=== PATIENT | female | born 1980 | race Caucasian/White ===

== ENCOUNTER 2018-01-07 14:24 | Inpatient (IN) | payer OTHER ==
[~2018-01-07] VITALS: Ht 170.2 cm; Wt 90.0 kg
[2018-01-07] MEDS ORDERED: SODIUM CHLORIDE 0.9% 1000ML 1,000 ML IV STA ×2 (15:30→16:45)
[2018-01-07] MEDS ORDERED: ONDANSETRON INJ 2 MG/ML 2 ML VIAL IV STA (15:30)
[2018-01-07] MEDS ORDERED: MoRPHine SULFATE 10 MG/ML CARP/VIAL IV STA (15:43)
[2018-01-07 16:06] LABS: BASO % 0.2 %; BASO ABS # 0.02 K/uL (0-0.2); EOS % 0.7 %; EOS ABS # 0.08 K/uL (0-0.5); HEMATOCRIT 43.5 % (37-47); HEMOGLOBIN 14.4 g/dL (12.0-16.0); IG# 0.02 K/uL (0.00-0.02); LYMPH % 12.9 %; LYMPH ABS # 1.53 K/uL (1.2-3.4); MEAN CELL VOLUME 74.7 fL (80-100); MEAN CORPUSCULAR HEMOGLOBIN 24.7 pg (25-34); MEAN CORPUSCULAR HGB CONC 33.1 g/dl (32-36); MEAN PLATELET VOLUME 9.6 fL (7.4-10.4); MONO % 5.6 %; MONO ABS # 0.67 K/uL (0.11-0.59); NEUT % 80.4 %; NEUT ABS # 9.58 K/uL (1.4-6.5); PLATELET COUNT 292 K/uL (130-400); RED CELL DISTRIBUTION WIDTH CV 16.3 % (11.5-14.5); RED CELL DISTRIBUTION WIDTH SD 43.8 fL (36.4-46.3)
[2018-01-07 16:27] LABS: CALCIUM 9.6 mg/dl (8.5-10.1); CREATININE 1.4 mg/dl (0.60-1.20); POTASSIUM 3.6 mmol/L (3.5-5.1)
--- NOTE | 2018-01-07 16:54 | EMERGENCY ROOM VISIT NOTE ---
History First contact with patient: 15:04 Chief Complaint: ABDOMINAL PAIN Stated Complaint: UPPER STOMACH PAIN History of Present Illness The patient is a 37 year old female who presents to the Emergency Room with complaints of right upper quadrant pain intermittently 2 weeks. The patient states over the past 3 days, the symptoms have been worse. The pain radiates into her back, and she rates it 9/10 and describes it as sharp. Food seems to make the pain worse, nothing seems to make it better. She states she has been eating sandwiches, and states today she ate a sausage and cheese sandwich prior to experience significant pain. She did have a lunch meat some over the weekend prior to symptoms. She did try taking ibuprofen 600 mg 2 hours prior, without improvement in her symptoms. She does get nauseated and has had multiple episodes of emesis. She denies any hematemesis. She denies any fevers , but has had occasional chills. She denies any constipation or diarrhea. The patient has not had any bowel movements, and states it is due to decreased p.o. intake. She does still have her gallbladder and appendix. This is the first time she has ever experienced these symptoms. The patient is currently on menses. Review of Systems A complete 10 point review of systems was reviewed with the patient with pertinent positives and negatives as per history of present illness. All else were negative. Past Medical/Surgical History Medical Problems: (1) Anxiety State Nos (2) Chronic Pain Due To Trauma (3) Chronic pain of left ankle (4) Comminuted left ankle fracture (5) Depressive Disorder Nec (6) Hypertensive urgency (7) Pancreatitis (8) Tobacco Use Disorder Social History Smoking Status: Never Smoker Drug Use: none Marital Status: Housing Status: lives with family Occupation Status: employed Current/Historical Medications No Active Prescriptions or Reported Meds Physical Exam Vital Signs Date Time Temp Pulse Resp B/P (MAP) Pulse Ox O2 Delivery O2 Flow Rate FiO2 01/07/18 19:44 82 21 223/138 98 Room Air 01/07/18 17:21 82 21 223/146 97 Room Air 01/07/18 16:20 87 20 97 Room Air 01/07/18 14:29 36.7 110 18 212/159 98 Room Air Physical Exam VITALS: Vitals are noted on the nurse's note and reviewed by myself. Vital signs stable. GENERAL: This is a 37-year-old obese white female, in no acute distress, nondiaphoretic, well-developed well-nourished. SKIN: The skin was without rashes, erythema, edema, or bruising. There is no tenting of the skin. Capillary reflex less than 2 seconds. HEAD: Normocephalic atraumatic. EARS: External auditory canals clear, tympanic membranes pearly dickson without erythema or effusion bilaterally. EYES: Pupils equal round and reactive to light and accommodation. Conjunctivae without injection, sclerae without icterus. Extraocular movements intact. NOSE: Patent, turbinates without inflammation or discharge. No sinus tenderness. MOUTH: Mucous membranes moist. Tonsils are not enlarged. Pharynx without erythema or exudate. Uvula midline. Airway patent. Tongue does not deviate. NECK: Supple without nuchal rigidity. No lymphadenopathy. No thyromegaly. Cervical spine is nontender. No JVD. HEART: Regular rate and rhythm without murmurs gallops or rubs. LUNGS: Clear to auscultation bilaterally without wheezes, rales or rhonchi. No dullness to percussion. No retractions or accessory muscle use. ABDOMEN: Positive bowel sounds x 4. Normal tympanic percussion. Epigastric and right upper quadrant tenderness. The abdomen was otherwise soft, nontender , without masses or organomegaly. Bolden sign positive. No guarding or rebound tenderness. MUSCULOSKELETAL: No muscle atrophy, erythema, or edema noted. Full range of motion without joint tenderness in all extremities. No tenderness to palpation. Normal gait. Strength 5/5 throughout. NEURO: Patient was alert and oriented to person place and time. Normal sensation to light and sharp touch. Deep tendon reflexes 2+ throughout. No focal neurological deficits. Medical Decision & Procedures ER Provider Diagnostic Interpretation: ABDOMEN LIMITED (US) HISTORY: 37 years-old Female RUQ pain acute right upper quadrant abdominal pain COMPARISON: None available TECHNIQUE: Multiple real-time sonographic images of the abdominal right upper quadrant were obtained assessing grayscale appearance and color flow FINDINGS: Nonspecific increased echogenicity of the pancreas without pancreatic ductal dilation identified. Slightly echogenic appearance of the liver without focal mass or intrahepatic biliary ductal dilation identified. The gallbladder is within normal limits without shadowing cholelithiasis, wall thickening or pericholecystic fluid collections. There is suggested minimal layering sludge within the gallbladder lumen. Common bile duct measures within the upper limits of normal at 6 mm. The imaged right kidney is unremarkable without hydronephrosis. IMPRESSION: 1. Minimal layering gallbladder sludge without cholelithiasis or sonographic evidence of acute cholecystitis. 2. No biliary ductal dilation. 3. Mildly echogenic appearance of the liver may reflect hepatic steatosis. The above report was generated using voice recognition software. It may contain grammatical, syntax or spelling errors. Electronically signed by: Joshua Jain M.D. 01/07/2018 4:58 PM Dictated Date/Time: 01/07/2018 4:55 PM Laboratory Results 01/07/18 15:55 Red Blood Count 5.82, Mean Corpuscular Volume 74.7, Mean Corpuscular Hemoglobin 24.7, Mean Corpuscular Hemoglobin Concent 33.1, Mean Platelet Volume 9.6, Neutrophils (%) (Auto) 80.4, Lymphocytes (%) (Auto) 12.9, Monocytes (%) (Auto) 5.6, Eosinophils (%) (Auto) 0.7, Basophils (%) (Auto) 0.2, Neutrophils # (Auto) 9.58, Lymphocytes # (Auto) 1.53, Monocytes # (Auto) 0.67, Eosinophils # (Auto) 0.08, Basophils # (Auto) 0.02 01/07/18 15:55 Test 01/07/18 15:55 01/07/18 17:25 White Blood Count 11.90 K/uL (4.8-10.8) Red Blood Count 5.82 M/uL (4.2-5.4) Hemoglobin 14.4 g/dL (12.0-16.0) Hematocrit 43.5 % (37-47) Mean Corpuscular Volume 74.7 fL (80-100) Mean Corpuscular Hemoglobin 24.7 pg (25-34) Mean Corpuscular Hemoglobin Concent 33.1 g/dl (32-36) Platelet Count 292 K/uL (130-400) Mean Platelet Volume 9.6 fL (7.4-10.4) Neutrophils (%) (Auto) 80.4 % Lymphocytes (%) (Auto) 12.9 % Monocytes (%) (Auto) 5.6 % Eosinophils (%) (Auto) 0.7 % Basophils (%) (Auto) 0.2 % Neutrophils # (Auto) 9.58 K/uL (1.4-6.5) Lymphocytes # (Auto) 1.53 K/uL (1.2-3.4) Monocytes # (Auto) 0.67 K/uL (0.11-0.59) Eosinophils # (Auto) 0.08 K/uL (0-0.5) Basophils # (Auto) 0.02 K/uL (0-0.2) RDW Standard Deviation 43.8 fL (36.4-46.3) RDW Coefficient of Variation 16.3 % (11.5-14.5) Immature Granulocyte % (Auto) 0.2 % Immature Granulocyte # (Auto) 0.02 K/uL (0.00-0.02) Prothrombin Time 10.7 SECONDS (9.0-12.0) Prothromb Time International Ratio 1.0 (0.9-1.1) Activated Partial Thromboplast Time 26.4 SECONDS (21.0-31.0) Partial Thromboplastin Ratio 1.0 Anion Gap 5.0 mmol/L (3-11) Est Creatinine Clear Calc Drug Dose 63.2 ml/min Estimated GFR () 55.5 Estimated GFR (Non- 47.9 BUN/Creatinine Ratio 16.6 (10-20) Calcium Level 9.6 mg/dl (8.5-10.1) Magnesium Level 2.3 mg/dl (1.8-2.4) Total Bilirubin 0.6 mg/dl (0.2-1) Aspartate Amino Transf (AST/SGOT) 13 U/L (15-37) Alanine Aminotransferase (ALT/SGPT) 20 U/L (12-78) Alkaline Phosphatase 107 U/L (45-117) Troponin I < 0.015 ng/ml (0-0.045) Total Protein 8.0 gm/dl (6.4-8.2) Albumin 4.0 gm/dl (3.4-5.0) Globulin 4.0 gm/dl (2.5-4.0) Albumin/Globulin Ratio 1.0 (0.9-2) Lipase 720 U/L (73-393) Thyroid Stimulating Hormone (TSH) 1.410 uIu/ml (0.300-4.500) Urine Color YELLOW Urine Appearance CLOUDY (CLEAR) Urine pH 5.5 (4.5-7.5) Urine Specific Dana 1.020 (1.000-1.030) Urine Protein 1+ (NEG) Urine Glucose (UA) NEG (NEG) Urine Ketones TRACE (NEG) Urine Occult Blood 3+ (NEG) Urine Nitrite POS (NEG) Urine Bilirubin NEG (NEG) Urine Urobilinogen NEG (NEG) Urine Leukocyte Esterase SMALL (NEG) Urine WBC (Auto) >30 /hpf (0-5) Urine RBC (Auto) >30 /hpf (0-4) Urine Hyaline Casts (Auto) 5-10 /lpf (0-5) Urine Epithelial Cells (Auto) 20-30 /lpf (0-5) Urine Bacteria (Auto) 4+ (NEG) Urine Pathogenic Casts /lpf (0) Urine Test NEG (NEG) Medications Administered Medications (Trade) Dose Ordered Sig/Kathy Route Start Time Stop Time Status Last Admin Dose Admin Sodium Chloride 1,000 ml @ 999 mls/hr Q1H1M STAT IV 01/07/18 15:30 01/07/18 16:30 DC 01/07/18 16:06 999 MLS/HR Ondansetron HCl (Zofran Inj) 4 mg NOW STAT IV 01/07/18 15:30 01/07/18 15:33 DC 01/07/18 16:06 4 MG Morphine Sulfate (MoRPHine SULFATE INJ) 8 mg NOW STAT IV 01/07/18 15:43 01/07/18 15:46 DC 01/07/18 16:05 8 MG Sodium Chloride 1,000 ml @ 999 mls/hr Q1H1M STAT IV 01/07/18 16:45 01/07/18 17:45 DC 01/07/18 17:02 999 MLS/HR Morphine Sulfate (MoRPHine SULFATE INJ) 4 mg NOW STAT IV 01/07/18 17:28 01/07/18 17:29 DC 01/07/18 18:01 4 MG Lorazepam (Ativan Inj) 0.5 mg NOW STAT IV 01/07/18 19:52 01/07/18 19:54 DC 01/07/18 19:59 0.5 MG ED Course The patient was seen and evaluated as above. IV access obtained, labs drawn. The patient was given 1 L normal saline solution, 8 mg morphine, 4 mg Zofran for her symptoms. I reviewed all labs. I reviewed the ultrasound results. The patient requested more pain medication. She was given 4mg morphine IV at this time. The patient was given a second liter normal saline solution due to elevated lipase. I discussed findings with the patient at bedside. I offered admission for obs vs. discharge home with close outpatient follow-up. The patient was having difficulty making this decision and wanted to know if her insurance would pay for an observation admission. The case manage became involved at this time. Please see her documentation. I re-evaluated the patient. She continues to complain of 5/10 pain. A friend is at bedside now. The patient is continuing to have difficulty deciding on admission vs. discharge. She finally agrees to hospitalist evaluation and possible admission. I discussed the case with the [facility] hospitalist regarding obs. admission. Please see hospitalist dictation regarding ongoing management and care. The patient complains of anxiety, and I received a phone call from the nurse. She was given 0.5 mg Ativan IV. Medical Decision This is a 37-year-old female patient presents to the emergency department today complaining of epigastric and right upper quadrant abdominal pain intermittently for the past 2 weeks, but worsening over the past 3 days. The pain is significantly worsened with food, and has caused nausea with vomiting. The patient does report one episode of hematemesis after initially denying this complaint. Her labs did show a mildly elevated white blood cell count of 11.9. There was no significant anemia or thrombocytopenia noted. Creatinine was elevated at 1.4. Electrolytes were overall without significant abnormality. Hepatic function is without significant abnormality. The patient's lipase was elevated at 720. Urinalysis was positive for nitrates and bacteria. This does appear to be a contaminated specimen, as there are 20-30 epithelial cells. Urine test was negative. Abdominal ultrasound did show sludge in the gallbladder and some echogenicity of the pancreas. While here in the emergency department, the patient required a significant amount of pain medication. She was given 2 L normal saline solution and Zofran for nausea and vomiting. She did report mild improvement, but continues to complain of pain 5/10. I discussed several times options with the patient including discharge versus admission for monitoring and pain management. Finally, the patient decides to agree to admission. I did discuss the case with the hospitalist. The patient will be admitted for observation for pain management and possible developing pancreatitis. Etiologies such as appendicitis, diverticulitis, obstruction, inflammatory bowel disease, renal colic, PUD, biliary pathology, pancreatitis, mesenteric ischemia, aortic pathology, infections, genitourinary, UTI, perforated viscus, as well as others were entertained. The chart was completed utilizing [employer] voice recognition software. Grammatical errors, random word insertions, pronoun errors, and incomplete sentences are an occasional consequence of this system due to software limitations, ambient noise, and hardware issues. Any formal questions or concerns about the content, text, or information contained within the body of this dictation should be directly addressed to the provider for clarification. Medication Reconcilliation Current Medication List: was personally reviewed by me Blood Pressure Screening Patient's blood pressure: Elevated blood pressure Blood pressure disposition: Elevated BP felt to be situational Impression Primary Impression: Abdominal pain Additional Impression: Urinary tract infection Departure Information Dispostion Admitted as an inpatient Condition GOOD Prescriptions No Active Prescriptions or Reported Meds Referrals Lily Eastman M.D. (PCP) Patient Instructions [facility] Problem Qualifiers Primary Impression: Abdominal pain Abdominal location: epigastric Qualified Codes: R10.13 - Epigastric pain Additional Impression: Urinary tract infection Urinary tract infection type: acute cystitis Hematuria presence: with hematuria Qualified Codes: N30.01 - Acute cystitis with hematuria
--- NOTE | 2018-01-07 17:00 | DIAGNOSTIC IMAGING REPORT ---
ABDOMEN LIMITED (US) HISTORY: 37 years-old Female RUQ pain acute right upper quadrant abdominal pain COMPARISON: None available TECHNIQUE: Multiple real-time sonographic images of the abdominal right upper quadrant were obtained assessing grayscale appearance and color flow FINDINGS: Nonspecific increased echogenicity of the pancreas without pancreatic ductal dilation identified. Slightly echogenic appearance of the liver without focal mass or intrahepatic biliary ductal dilation identified. The gallbladder is within normal limits without shadowing cholelithiasis, wall thickening or pericholecystic fluid collections. There is suggested minimal layering sludge within the gallbladder lumen. Common bile duct measures within the upper limits of normal at 6 mm. The imaged right kidney is unremarkable without hydronephrosis. IMPRESSION: 1. Minimal layering gallbladder sludge without cholelithiasis or sonographic evidence of acute cholecystitis. 2. No biliary ductal dilation. 3. Mildly echogenic appearance of the liver may reflect hepatic steatosis. The above report was generated using voice recognition software. It may contain grammatical, syntax or spelling errors. Electronically signed by: Joshua Jain M.D. 01/07/2018 4:58 PM Dictated Date/Time: 01/07/2018 4:55 PM
[2018-01-07] MEDS ORDERED: MoRPHine SULFATE 4 MG/ML 1 ML CARP\\VIAL IV STA (17:28)
[2018-01-07] MEDS ORDERED: LORAZEPAM 2 MG/ML 1 ML VIAL IV STA (19:52)
[2018-01-07 20:08] LABS: PTT PATIENT 26.4 SECONDS (21.0-31.0)
[2018-01-07] MEDS ORDERED: IV FLUIDS COMPLETED PRN (20:15)
[2018-01-07] MEDS ORDERED: AMLODIPINE BESYLATE 5 MG TAB ONE (20:26)
[2018-01-07] MEDS ORDERED: AMLODIPINE BESYLATE 5 MG TAB PO ONE (20:30)
[2018-01-07] MEDS ORDERED: PROCHLORPERAZINE INJ 5 MG in SYRINGE 4 ML IV PRN ×2 (20:30→21:00)
[2018-01-07] MEDS ORDERED: PANTOprazole INJ 40 MG in SYRINGE 0 ML IV ONE (20:30)
[2018-01-07] MEDS ORDERED: POLYETHYLENE (MIRALAX) 17 GM PACK PO ONE (20:53)
[2018-01-07] MEDS ORDERED: DOCUSATE SODIUM/SENNA 50/8.6MG TAB PO ONE (20:53)
[2018-01-07 20:55] VITALS: BP 220/140; PULSE 87; TEMP 37; Ht 170.2 cm; Wt 90.0 kg
[2018-01-07] MEDS ORDERED: POLYETHYLENE (MIRALAX) 17 GM PACK PO PRN (21:00)
[2018-01-07] MEDS ORDERED: NITROGLYCERIN 0.4 MG SL PER TAB CHARGE SL PRN (21:00)
--- NOTE | 2018-01-07 21:27 | DIAGNOSTIC IMAGING REPORT ---
ABDOMEN AND PELVIS CT WITHOUT CONTRAST CT DOSE: 636.25 mGy.cm HISTORY: Acute generalized abdominal pain abd pain TECHNIQUE: Multiaxial CT images of the abdomen and pelvis were performed without contrast. A dose lowering technique was utilized adhering to the principles of ALARA. COMPARISON STUDY: Right upper quadrant ultrasound of same day FINDINGS: Lung bases are clear. There is no pneumatosis or pneumoperitoneum identified. Imaged inferior cardiac chambers are unremarkable. Evaluation of the solid abdominal organs is limited without use of IV contrast. The liver, spleen,, gallbladder and adrenal glands are unremarkable. There is suggestion of minimal inflammatory stranding about the pancreatic head and uncinate process. Kidneys, ureters, urinary bladder, uterus and adnexa are unremarkable. Aorta is normal in course and caliber without aneurysm. No bulky adenopathy. No bowel obstruction or focal bowel wall thickening. Mild colonic diverticulosis without diverticulitis. I attenuating material seen within the right hemicolon. Normal appendix. Soft tissues are unremarkable. Mild multilevel facet arthrosis. IMPRESSION: 1. Suggestion of minimal inflammatory stranding about the pancreatic head and uncinate process may reflect developing acute pancreatitis within the appropriate clinical setting. Correlate with lipase level. 2. No bowel obstruction or focal bowel wall thickening. Normal appendix. 3. Mild colonic diverticulosis without CT evidence of acute diverticulitis. Electronically signed by: Joshua Jain M.D. 01/07/2018 9:26 PM Dictated Date/Time: 01/07/2018 9:20 PM
[2018-01-07] MEDS: HYDROmorphone INJ 0.5 MG/0.5 ML SYR IV PRN (21:37)
[2018-01-07 21:47] LABS: HEMATOCRIT 40.1 % (37-47)
[2018-01-07] MEDS: LACTATED RINGER'S 1000ML 1,000 ML IV SCH (21:54)
[2018-01-07] MEDS ORDERED: NSS + 20MEQ KCL 1000ML 1,000 ML IV SCH (22:00)
--- NOTE | 2018-01-07 23:43 | EMERGENCY ROOM VISIT NOTE ---
ED Visit Note First contact with patient: 15:04 I have personally evaluated this patient examined her and reviewed the pertinent labs and data. I have discussed the case with Svetlana Jackson, the physician leasing assistant and agree with the plan. Please refer to the PA note. This patient has had nausea vomiting and upper abdominal pain. She was found to have a mildly elevated lipase and has some sludge in her gallbladder. She has had multiple doses of pain medicine and IV meds. On my exam, she has no peritonitis and seems more comfortable fairly comfortable after having IV meds. At this point, we are going to admit her for pain management and further treatment and evaluation of her abdominal pain.
[2018-01-08] VITALS (12 sets, daily range): BP systolic 165–208; BP diastolic 107–133; PULSE 66–80; TEMP 36.5–36.8; O2SAT 93–98
[2018-01-08] MEDS: LORAZEPAM 2 MG/ML 1 ML VIAL IV PRN ×4 (00:14→20:42)
[2018-01-08] MEDS: TRAMADOL HCL 50 MG TAB PO PRN ×2 (00:15→19:45)
--- NOTE | 2018-01-08 00:22 | HISTORY & PHYSICAL EXAMINATION ---
DATE OF ADMISSION: 01/07/2018 PRIMARY CARE PHYSICIAN: Dr. Eastman. CHIEF COMPLAINT: Abdominal pain. HISTORY OF PRESENT ILLNESS: History obtained from patient and records. Medical history significant for hypertension (medication noncompliance), mood disorder, anxiety, ongoing tobacco abuse. Two weeks history of upper achy abdominal pain precipitated by food intake, later on more constant, no bowel movement for 5 days, some nausea, no emesis, no chest pain, no shortness of breath. Today, she had an episode of hematemesis. Denies dysuria Intractable pain in the Emergency Room. Denies alcohol/NSAID intake. MEDICAL HISTORY: As above. She stopped taking multiple blood pressure medications (Norvasc,propranolol, verapamil, and losartan/HCTZ) for about 5 months now because "it was good without medications" SURGICAL HISTORY: She has had orthopedic procedures. MEDICATIONS: Home medications are none. ALLERGIES: ALLERGIC TO TYLENOL, ADHESIVE, SULFA, CODEINE, LATEX, PREGABALIN. FAMILY HISTORY: Diabetes and hypertension. PERSONAL AND SOCIAL HISTORY: One-fourth pack daily. No chronic intake of alcohol or abuse. 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 REVIEW OF SYSTEMS: As per HPI. All 10 systems reviewed, all other ROS negative. PHYSICAL EXAMINATION: VITAL SIGNS: Blood pressure is noted to be 212/159, pulse 87, RR 20, temperature 36.7, saturations 97% on room air. GENERAL: uncomfortable, obese, in no respiratory distress. SKIN: Normal color, warm. HEENT: [place] palpebral conjunctivae no ptosis , dry buccal mucosa. NECK: Supple and nontender. CHEST: Clear. No tenderness. CARDIOVASCULAR: RRR, no murmur. ABDOMEN: Some distention, epigastric tenderness. EXTREMITIES: No edema, no LE tenderness, no other gross deformities except amputation stump NEUROLOGIC: Coherent, no gross focality. LABORATORY DATA: Hemoglobin 14, hematocrit 42.5, WBC 11.9, platelets 292. Sodium 136, chloride 101, CO2 of 31, BUN 30, creatinine 1.4, glucose 84. Lipase 720. US showed overlying gallbladder sludge without cholelithiasis. CT of abdomen and pelvis showed minimal inflammation of pancreatic head, uncinate process, developing acute pancreatitis ASSESSMENT: 1. Acute pancreatitis Probably biliary in etiology . 2. Hypertensive urgency secondary to pain Medication noncompliance. 3. Upper gastrointestinal bleeding secondary to possible gastritis. Hemoglobin currently stable 4. ongoing tobacco abuse. 5 ARF 2 to illness. PLAN: PCU for hypertensive urgency. analgesia. Resume home Norvasc for now. IVF, bowel rest Baseline urinalysis. Monitor creatinine response to IV fluids. IV PPI for now for UGIB Serial H&H (Of note, patient currently refusing pRBC transfusion in the eventuality.) GI consult RE UGIB, pancreatitis Patient counseled to stop smoking. DVT Prophylaxis: SCDs RE GI bleed. Full code. MTDD
[2018-01-08] MEDS: HYDROmorphone INJ 0.5 MG/0.5 ML SYR IV PRN ×5 (03:50→21:36)
[2018-01-08 05:35] LABS: BASO % 0.5 %; BASO ABS # 0.04 K/uL (0-0.2); EOS % 3.9 %; EOS ABS # 0.32 K/uL (0-0.5); HEMATOCRIT 39.7 % (37-47); HEMOGLOBIN 12.9 g/dL (12.0-16.0); IG# 0.02 K/uL (0.00-0.02); LYMPH % 23.4 %; MEAN CELL VOLUME 75.6 fL (80-100); MEAN CORPUSCULAR HEMOGLOBIN 24.6 pg (25-34); MEAN CORPUSCULAR HGB CONC 32.5 g/dl (32-36); MEAN PLATELET VOLUME 9.9 fL (7.4-10.4); MONO % 7.5 %; MONO ABS # 0.61 K/uL (0.11-0.59); NEUT % 64.5 %; NEUT ABS # 5.23 K/uL (1.4-6.5); PLATELET COUNT 250 K/uL (130-400); RED CELL DISTRIBUTION WIDTH CV 16.1 % (11.5-14.5); RED CELL DISTRIBUTION WIDTH SD 43.9 fL (36.4-46.3); WHITE BLOOD COUNT 8.12 K/uL (4.8-10.8)
[2018-01-08 06:12] LABS: CALCIUM 8.4 mg/dl (8.5-10.1); CREATININE 0.85 mg/dl (0.60-1.20); POTASSIUM 3.1 mmol/L (3.5-5.1)
--- NOTE | 2018-01-08 07:10 | Clinical Documentation Query ---
DERIAN Carter : CLINICAL DOCUMENTATION QUERY Patient is a 37 year old female admitted for evaluation of abdominal pain. CT scan of the abdomen read to include "Suggestion of minimal inflammatory stranding about the pancreatic head and uncinate process may reflect developing acute pancreatitis ". H&P notes "acute pancreaticobiliary" which appears incomplete. As appropriate, please clarify the possible or suspected clinical etiology for the abdominal pain at this time. Thank you. In your clinical opinion is this patient being managed for: ( ) (Possible) Acute pancreatitis ( ) Not Agree ( ) Other explanation of clinical findings (Please Explain. If no explanation given, this would be considered a no response.) ( ) Unable to determine ( X ) Need to Discuss (Please call CDS via extension or NullPointer. If no interaction occurs this is considered a no response.) PLEASE FORWARD QUERY TO DR KRUGER WHO IS THE PATIENT'S ATTENDING. THANKS. The medical record reflects the following clinical findings, treatment, and risk factors. Clinical Indicators: As above Treatment: GI consult, IVF, analgesia, NPO except meds Risk Factors: Obesity, high lipid diet Please clarify and document your clinical opinion in the progress notes and discharge summary. Terms such as "probable", "suspected", "likely", "questionable", "possible", or "still to be ruled out" are acceptable. IF IN AGREEMENT, YOU MUST DOCUMENT ABOVE DIAGNOSTIC STATEMENT IN DAILY PROGRESS NOTES AND DISCHARGE SUMMARY. This document is not part of the patient's record. Thank You, Andrew Boykin, OZZIE [phone]
[2018-01-08] MEDS: LACTATED RINGER'S 1000ML 1,000 ML IV SCH ×2 (07:30→15:38)
[2018-01-08] MEDS: AMLODIPINE BESYLATE 5 MG TAB PO SCH (07:31)
[2018-01-08] MEDS: POTASSIUM CHLR 10 MEQ / WTR 100 ML IV SCH ×2 (08:45→10:57)
[2018-01-08] MEDS: DOCUSATE SODIUM/SENNA 50/8.6MG TAB PO SCH ×2 (09:00→21:05)
[2018-01-08] MEDS ORDERED: PANTOprazole INJ 40 MG in SYRINGE 0 ML IV SCH (09:00)
[2018-01-08] MEDS ORDERED: ENALAPRILAT IV 1.25 MG in DEXTROSE 5% 25ML 25 ML IV SCH (09:00)
[2018-01-08 11:58] LABS: HEMATOCRIT 41.7 % (37-47); HEMOGLOBIN 13.5 g/dL (12.0-16.0)
--- NOTE | 2018-01-08 12:03 | Gastrointestinal Consultation ---
Gastrointestinal Consultation Date of Consultation: January 08, 2018 Attending Physician: Vincent Rosario Consulting Physician: Wilner Ashby Reason for Consultation: Pancreatitis, UGIB History of Present Illness Patient is a 37 year old female w PMHx of anxiety, tobacco abuse, mood disorder , who presented to ED yesterday for c/o abd pain x 2 days. Reports abd pain started from epigastric to RUQ area. Has associated N/V. Prior to ED arrival had emesis w specks of bright red blood. No more emesis since then but did have mild nausea. Denies any fever, chills, CP, SOB. Upon eval labs showed no significant leukocytosis WBC 11. H/H normal, no coagulopathy. CMP showed hypokalemia K 3.1, otherwise normal. LFTs are normal. Lipase elevated 720. Abd imaging w u/s and CT showed inflammation of head and uncinate pancreas process consistent w pancreatitis. + gallbladder sludge but no stones and no inflammation. CBD was 6mm. Pt is a smoker, denies ETOH or illicit drugs including marijuana. Does take Aleve on occasion. Past Medical/Surgical History Medical Problems: (1) Abdominal pain Status: Acute (2) Urinary tract infection Status: Acute Past Medical History: See above Past Surgical History: Plastic surgery on ear Ankle and cartilage repair Social History Smoking Status: Never Smoker Drug Use: none Marital Status: Housing Status: lives with family Occupation Status: employed Allergies Coded Allergies: Acetaminophen (Verified Allergy, Severe, THROAT SWELLING, 10/14/09) Cephalosporins (Verified Allergy, Severe, THROAT SWELLS, 10/14/09) Codeine (Verified Allergy, Severe, THROAT SWELLING, 10/14/09) Latex1 -Allergic Contact Dermititis (Verified Allergy, Unknown, ?, 12/31/08 ) Pregabalin (Verified Allergy, Unknown, `, 10/14/09) Adhesives (Verified Adverse Reaction, Intermediate, RASH, SKIN PEELING, 02/06) Current Medications Home Meds and Scripts Medications Dose Route/Sig Max Daily Dose Days Date Category No Active Prescriptions or Reported Medications Rx Review of Systems Constitutional: No fever, No chills Respiratory: No cough, No shortness of breath Cardiac: No chest pain Abdomen: + see HPI, + pain, + nausea, + vomiting, + GI bleeding Physical Exam Date Time Temp Pulse Resp B/P (MAP) Pulse Ox O2 Delivery O2 Flow Rate FiO2 5/2/18 10:56 67 173/121 (138) 01/08/18 10:02 70 197/118 (144) 01/08/18 08:00 Room Air 01/08/18 07:45 36.5 66 16 195/120 (145) 95 Room Air 01/08/18 04:04 36.6 74 20 195/123 (147) 93 Room Air 01/08/18 04:00 93 Room Air 01/08/18 00:00 98 Room Air 01/08/18 00:00 36.6 80 18 208/133 (158) 98 Room Air 197/133 (154) 01/07/18 20:55 37.0 87 20 220/140 Room Air 01/07/18 20:45 89 20 200/153 98 Room Air 01/07/18 19:44 82 21 223/138 98 Room Air 01/07/18 17:21 82 21 223/146 97 Room Air 01/07/18 16:20 87 20 97 Room Air 01/07/18 14:29 36.7 110 18 212/159 98 Room Air General Appearance: WD/WN, no apparent distress Eyes: normal inspection, PERRL, EOMI Neck: supple, no JVD, trachea midline Respiratory/Chest: normal breath sounds, no respiratory distress, no accessory muscle use Cardiovascular: regular rate, rhythm, no gallop, no murmur Abdomen: normal bowel sounds, non tender, soft Extremities: normal inspection, no pedal edema, no calf tenderness Neurologic/Psych: + depressed affect (drowsy appearing) Skin: normal color, no jaundice, no rash Laboratory Results Last 24 Hours Test 01/07/18 15:55 01/07/18 17:25 01/07/18 21:27 01/08/18 05:09 White Blood Count 11.90 K/uL 8.12 K/uL Red Blood Count 5.82 M/uL 5.25 M/uL Hemoglobin 14.4 g/dL 13.0 g/dL 12.9 g/dL Hematocrit 43.5 % 40.1 % 39.7 % Mean Corpuscular Volume 74.7 fL 75.6 fL Mean Corpuscular Hemoglobin 24.7 pg 24.6 pg Mean Corpuscular Hemoglobin Concent 33.1 g/dl 32.5 g/dl Platelet Count 292 K/uL 250 K/uL Mean Platelet Volume 9.6 fL 9.9 fL Neutrophils (%) (Auto) 80.4 % 64.5 % Lymphocytes (%) (Auto) 12.9 % 23.4 % Monocytes (%) (Auto) 5.6 % 7.5 % Eosinophils (%) (Auto) 0.7 % 3.9 % Basophils (%) (Auto) 0.2 % 0.5 % Neutrophils # (Auto) 9.58 K/uL 5.23 K/uL Lymphocytes # (Auto) 1.53 K/uL 1.90 K/uL Monocytes # (Auto) 0.67 K/uL 0.61 K/uL Eosinophils # (Auto) 0.08 K/uL 0.32 K/uL Basophils # (Auto) 0.02 K/uL 0.04 K/uL RDW Standard Deviation 43.8 fL 43.9 fL RDW Coefficient of Variation 16.3 % 16.1 % Immature Granulocyte % (Auto) 0.2 % 0.2 % Immature Granulocyte # (Auto) 0.02 K/uL 0.02 K/uL Prothrombin Time 10.7 SECONDS Prothromb Time International Ratio 1.0 Activated Partial Thromboplast Time 26.4 SECONDS Partial Thromboplastin Ratio 1.0 Sodium Level 137 mmol/L 137 mmol/L Potassium Level 3.6 mmol/L 3.1 mmol/L Chloride Level 101 mmol/L 105 mmol/L Carbon Dioxide Level 31 mmol/L 28 mmol/L Anion Gap 5.0 mmol/L 4.0 mmol/L Blood Urea Nitrogen 23 mg/dl 13 mg/dl Creatinine 1.40 mg/dl 0.85 mg/dl Est Creatinine Clear Calc Drug Dose 63.2 ml/min 103.6 ml/min Estimated GFR () 55.5 101.5 Estimated GFR (Non- 47.9 87.5 BUN/Creatinine Ratio 16.6 15.7 Random Glucose 84 mg/dl 91 mg/dl Calcium Level 9.6 mg/dl 8.4 mg/dl Magnesium Level 2.3 mg/dl Total Bilirubin 0.6 mg/dl Aspartate Amino Transf (AST/SGOT) 13 U/L Alanine Aminotransferase (ALT/SGPT) 20 U/L Alkaline Phosphatase 107 U/L Troponin I < 0.015 ng/ml Total Protein 8.0 gm/dl Albumin 4.0 gm/dl Globulin 4.0 gm/dl Albumin/Globulin Ratio 1.0 Lipase 720 U/L 267 U/L Thyroid Stimulating Hormone (TSH) 1.410 uIu/ml Urine Color YELLOW Urine Appearance CLOUDY Urine pH 5.5 Urine Specific [place] 1.020 Urine Protein 1+ Urine Glucose (UA) NEG Urine Ketones TRACE Urine Occult Blood 3+ Urine Nitrite POS Urine Bilirubin NEG Urine Urobilinogen NEG Urine Leukocyte Esterase SMALL Urine WBC (Auto) >30 /hpf Urine RBC (Auto) >30 /hpf Urine Hyaline Casts (Auto) 5-10 /lpf Urine Epithelial Cells (Auto) 20-30 /lpf Urine Bacteria (Auto) 4+ Urine Pathogenic Casts /lpf Urine Test NEG Test 01/08/18 11:49 Impression Patient is a 37 year old female presented w abd pain, n/v, very minimal bright red blood in emesis yesterday; lipase elevated and CT, u/s consistent w pancreatitis. + biliary sludge but no inflammation, stones, CBD was 6mm, LFTs normal. She hasn't had any more emesis since admitted, H/H stable. Plan - CL diet by afternoon - LR @ 150ml/hr - Obtain urine tox screen, lipid panel - Tobacco cessation; ETOH avoidance. - Symptomatic management otherwise - Plan for outpt EUS in 4-6 week's time. - The blood in emesis pt mentioned she had prior to coming to ED yesterday was minimal and her H/H remained normal overnight. Will monitor for now. I saw and evaluated the patient. We are consulted for evaluation of acute pancreatitis. Of note her labs are improved today and the patient notes her symptoms are resolving. Physical examination No obvious distress No scleral icterus Impression: Patient with mild pancreatitis without an obvious cause. Would suggest continued IV hydration and consider advancing diet as tolerated over the next 24 hours. The patient is pain-free on she probably can have an early discharge. We will plan to do an outpatient endoscopic ultrasound in 6 -8 weeks to evaluate for evidence of stones missed another studies for precancerous lesions. I would also suggest treatment of her underlying urinary tract infection. Please call with any questions or concerns, GI to sign out for the time being
[2018-01-08] MEDS ORDERED: AMLODIPINE BESYLATE 5 MG TAB PO ONE (14:00)
[2018-01-08] MEDS ORDERED: LOSARTAN/HCTZ 50-12.5 EA TAB PO STA (16:41)
--- NOTE | 2018-01-08 16:45 | Progress Note ---
Progress Note Date of Service January 08, 2018. Progress Note Subjective: Patient appears fatigued but not in acute pain. Physical Exam GENERAL: fatigued but not in acute kaiden SKIN: Normal color, warm. NECK: No JVD CHEST: CTABL, no wheezing CARDIOVASCULAR: Heart rhythm regular, no murmur. ABDOMEN: positive bowel sounds, no rebound tenderness, no guarding EXTREMITIES: No edema Abdominal Ultrasound Nonspecific increased echogenicity of the pancreas without pancreatic ductal dilation identified. Slightly echogenic appearance of the liver without focal mass or intrahepatic biliary ductal dilation identified. The gallbladder is within normal limits without shadowing cholelithiasis, wall thickening or pericholecystic fluid collections. There is suggested minimal layering sludge within the gallbladder lumen. Common bile duct measures within the upper limits of normal at 6 mm. The imaged right kidney is unremarkable without hydronephrosis. IMPRESSION: 1. Minimal layering gallbladder sludge without cholelithiasis or sonographic evidence of acute cholecystitis. 2. No biliary ductal dilation. 3. Mildly echogenic appearance of the liver may reflect hepatic steatosis. Abdominal CT 1. Suggestion of minimal inflammatory stranding about the pancreatic head and uncinate process may reflect developing acute pancreatitis within the appropriate clinical setting. Correlate with lipase level. 2. No bowel obstruction or focal bowel wall thickening. Normal appendix. 3. Mild colonic diverticulosis without CT evidence of acute diverticulitis Assessment and Plan: This is a 37 year old female presented who presented with abdominal pain pain, nausea and vomiting, blood in emesis yesterday; lipase elevated and CT, u/s consistent w pancreatitis. + biliary sludge but no inflammation, stones, CBD was 6mm, LFTs normal. Pancreatitis -evaluated by gastroenterology -Continue IV fluids -outpatient endoscopic ultrasound in 6-8 weeks -smoking cessation and avoiding alcohol encouraged Red blood emesis reported on admission -evaluated by gastroenterology -H/H stable, no plans for endoscopy at this time Hypertensive urgency on admission / Hypertension -received Enalaprilat this AM -increased amlodipine from 5 mg to 10mg -start HCTZ Losartan -pain control Hypokalemia -serum potassium 3.1, IV potassium given UTI -urine culture with gram negative bacilli, patient has cephalosporin allergy, start ciprofloxacin DVT ppx: SCDs
[2018-01-08] MEDS: PANTOprazole SOD 40 MG TAB PO SCH (21:05)
[2018-01-08] MEDS: CIPROFLOXACIN 250 MG TAB PO SCH (21:05)
[2018-01-09] MEDS: HYDROmorphone INJ 0.5 MG/0.5 ML SYR IV PRN ×3 (01:54→09:01)
[2018-01-09] MEDS: LORAZEPAM 2 MG/ML 1 ML VIAL IV PRN ×2 (02:29→09:36)
[2018-01-09 03:24] VITALS: BP 137/86; PULSE 72; TEMP 36.6; O2SAT 94
[2018-01-09 06:55] LABS: BASO % 0.4 %; BASO ABS # 0.03 K/uL (0-0.2); EOS % 4.2 %; EOS ABS # 0.29 K/uL (0-0.5); HEMATOCRIT 39.9 % (37-47); HEMOGLOBIN 13.1 g/dL (12.0-16.0); IG# 0.01 K/uL (0.00-0.02); LYMPH % 27.6 %; LYMPH ABS # 1.89 K/uL (1.2-3.4); MEAN CELL VOLUME 75.3 fL (80-100); MEAN CORPUSCULAR HEMOGLOBIN 24.7 pg (25-34); MEAN CORPUSCULAR HGB CONC 32.8 g/dl (32-36); MEAN PLATELET VOLUME 9.6 fL (7.4-10.4); MONO % 7.9 %; MONO ABS # 0.54 K/uL (0.11-0.59); NEUT % 59.8 %; NEUT ABS # 4.09 K/uL (1.4-6.5); PLATELET COUNT 233 K/uL (130-400); RED CELL DISTRIBUTION WIDTH SD 43.5 fL (36.4-46.3); WHITE BLOOD COUNT 6.85 K/uL (4.8-10.8)
[2018-01-09 07:30] LABS: ALBUMIN 2.9 gm/dl (3.4-5.0); CREATININE 0.85 mg/dl (0.60-1.20); POTASSIUM 3.2 mmol/L (3.5-5.1)
[2018-01-09 07:35] LABS: TOTAL PROTEIN 6.4 gm/dl (6.4-8.2)
[2018-01-09 08:08] VITALS: BP 164/114; PULSE 75; TEMP 36.7; O2SAT 97
[2018-01-09] MEDS ORDERED: ONDANSETRON INJ 2 MG/ML 2 ML VIAL ONE (08:42)
[2018-01-09] MEDS ORDERED: NURSING VERBAL MED ORDER ONE (08:45)
--- NOTE | 2018-01-09 08:50 | Gastroenterology Progress Note ---
Progress Note Date of Service: January 09, 2018 Subjective Pt evaluation today including: conversation w/ patient, physical exam, chart review, lab review, review of inpatient medication list Pt tolerating solid meals. Some abd pain still, no n/v. Lipase has normalized. K 3.2 today. UTI Ecoli noted. Review of Systems Constitutional: No fever, No chills Respiratory: No cough, No shortness of breath Abdomen: + pain, No nausea, No vomiting Medications Current Inpatient Medications Medications (Trade) Dose Ordered Sig/Kathy Route Start Time Stop Time Status Last Admin Dose Admin Miscellaneous (Iv Fluids Completed) 1 ea PRN PRN N/A 01/07/18 20:15 01/07/19 20:14 Amlodipine Besylate (Norvasc Tab) 5 mg QAM PO 01/08/18 09:00 02/07/18 08:59 01/08/18 07:31 5 MG Hydromorphone HCl (Dilaudid Inj) 0.5 mg Q3H PRN IV 01/07/18 20:30 01/21/18 20:29 01/09/18 05:24 0.5 MG Prochlorperazine Edisylate 5 mg/ Syringe 5 ml @ 5 mls/min Q6H PRN IV 01/07/18 20:30 02/06/18 20:29 Tramadol HCl (Ultram Tab) 25-50MG for pain 25MG ... Q6H PRN PO 01/07/18 20:30 02/06/18 20:29 01/08/18 19:45 50 MG Lorazepam (Ativan Inj) 0.5 mg Q4H PRN IV 01/07/18 20:30 02/06/18 20:29 01/09/18 02:29 0.5 MG Nitroglycerin (Nitrostat Tab) 0.4 mg UD PRN SL 01/07/18 21:00 02/06/18 20:59 Senna/Docusate Sodium (Senokot S Tab) 1 tab BID PO 01/08/18 09:00 02/07/18 08:59 01/08/18 21:05 1 TAB Polyethylene (Miralax Powder Packet) 17 gm DAILY PRN PO 01/07/18 21:00 02/06/18 20:59 Pantoprazole Sodium (Protonix Tab) 40 mg BID PO 01/08/18 21:00 02/07/18 20:59 01/08/18 21:05 40 MG Ciprofloxacin (Ciprofloxacin Tab) 250 mg Q12H PO 01/08/18 20:00 01/13/18 19:59 01/08/18 21:05 250 MG HCTZ/Losartan Potassium (Hyzaar 50-12.5 Tab) 2 tab QAM PO 01/09/18 09:00 02/08/18 08:59 Miscellaneous Information (Nursing Verbal Med Order) 1 ea ONE ONCE N/A 01/09/18 08:45 01/09/18 08:46 UNV Objective Vital Signs Date Time Temp Pulse Resp B/P (MAP) Pulse Ox O2 Delivery O2 Flow Rate FiO2 01/09/18 08:08 36.7 75 20 164/114 (131) 97 Room Air 01/09/18 04:00 Room Air 01/09/18 03:24 36.6 72 18 137/86 (103) 94 Room Air 01/08/18 23:59 Room Air 01/08/18 23:54 36.7 80 18 179/116 (137) 96 183/126 (145) 01/08/18 20:00 Room Air 01/08/18 19:38 36.6 77 20 197/130 (152) 98 Room Air 01/08/18 16:00 94 Room Air 01/08/18 15:09 36.8 69 19 178/123 (141) 94 Room Air 165/107 (126) 01/08/18 15:00 94 Room Air 01/08/18 12:03 36.5 70 16 181/109 (133) 98 Room Air 01/08/18 12:00 Room Air 01/08/18 10:56 67 173/121 (138) 01/08/18 10:02 70 197/118 (144) Physical Exam General Appearance: WD/WN, no apparent distress Eyes: normal inspection, PERRL, EOMI Neck: supple, no JVD, trachea midline Respiratory/Chest: normal breath sounds, no respiratory distress, no accessory muscle use Cardiovascular: regular rate, rhythm, no gallop, no murmur Abdomen: normal bowel sounds, soft, + tenderness (RUQ) Extremities: normal inspection, no pedal edema, no calf tenderness Neurologic/Psych: alert, normal mood/affect, oriented x 3 Skin: normal color, no jaundice, no rash Laboratory Results Last 24 Hours Test 01/08/18 11:49 01/08/18 15:45 01/09/18 06:41 Hemoglobin 13.5 g/dL 13.1 g/dL Hematocrit 41.7 % 39.9 % Urine Opiates Screen POS Urine Methadone, Qualitative NEG Urine Barbiturates NEG Urine Phencyclidine (PCP) Level NEG Ur Amphetamine/Methamphetamine NEG MDMA (Ecstasy) Screen NEG Urine Benzodiazepines Screen NEG Urine Cocaine Metabolite NEG Urine Marijuana (THC) NEG White Blood Count 6.85 K/uL Red Blood Count 5.30 M/uL Mean Corpuscular Volume 75.3 fL Mean Corpuscular Hemoglobin 24.7 pg Mean Corpuscular Hemoglobin Concent 32.8 g/dl Platelet Count 233 K/uL Mean Platelet Volume 9.6 fL Neutrophils (%) (Auto) 59.8 % Lymphocytes (%) (Auto) 27.6 % Monocytes (%) (Auto) 7.9 % Eosinophils (%) (Auto) 4.2 % Basophils (%) (Auto) 0.4 % Neutrophils # (Auto) 4.09 K/uL Lymphocytes # (Auto) 1.89 K/uL Monocytes # (Auto) 0.54 K/uL Eosinophils # (Auto) 0.29 K/uL Basophils # (Auto) 0.03 K/uL RDW Standard Deviation 43.5 fL RDW Coefficient of Variation 16.0 % Immature Granulocyte % (Auto) 0.1 % Immature Granulocyte # (Auto) 0.01 K/uL Sodium Level 134 mmol/L Potassium Level 3.2 mmol/L Chloride Level 103 mmol/L Carbon Dioxide Level 27 mmol/L Anion Gap 4.0 mmol/L Blood Urea Nitrogen 12 mg/dl Creatinine 0.85 mg/dl Est Creatinine Clear Calc Drug Dose 104.4 ml/min Estimated GFR () 101.5 Estimated GFR (Non- 87.5 BUN/Creatinine Ratio 13.7 Random Glucose 86 mg/dl Calcium Level 9.0 mg/dl Magnesium Level 2.1 mg/dl Total Bilirubin 0.4 mg/dl Aspartate Amino Transf (AST/SGOT) 8 U/L Alanine Aminotransferase (ALT/SGPT) 15 U/L Alkaline Phosphatase 83 U/L Total Protein 6.4 gm/dl Albumin 2.9 gm/dl Globulin 3.5 gm/dl Albumin/Globulin Ratio 0.8 Triglycerides Level 104 mg/dl Cholesterol Level 161 mg/dl HDL Cholesterol 35 mg/dl LDL Cholesterol, Calculated 105 mg/dl VLDL Cholesterol, Calculated 21 mg/dl Cholesterol/HDL Ratio 4.6 Assessment and Plan Patient is a 37 year old female presented w abd pain, n/v, very minimal bright red blood in emesis yesterday; lipase elevated and CT, u/s consistent w pancreatitis. + biliary sludge but no inflammation, stones, CBD was 6mm, LFTs normal. She hasn't had any more emesis since admitted, H/H stable. She is feeling better, wants to go home today. Plan - OK to DC IVF given tolerating PO intake - Low fat diet - Tobacco cessation; ETOH avoidance. - Plan for outpt EUS in 4-6 week's time. OK for DC from GI standpoint - Ecoli UTI treatment per primary team - Of note, she reported minimal amt of blood in emesis prior to coming to ED, H/ H had been normal since admission and no more vomiting noted. I saw and evaluated the patient. She appears to be better from the standpoint of her mild pancreatitis upon admission. Recommend advancing diet as tolerated. She will have an outpatient endoscopic ultrasound in about 6-8 weeks. Please call with any additional questions or concerns during the remainder of the hospital admission.
[2018-01-09] MEDS ORDERED: ONDANSETRON INJ 2 MG/ML 2 ML VIAL IV PRN (09:00)
[2018-01-09] MEDS ORDERED: LOSARTAN/HCTZ 50-12.5 EA TAB PO SCH (09:00)
[2018-01-09] MEDS ORDERED: POTASSIUM CHLR 10 MEQ / WTR 100 ML IV SCH (09:00)
[2018-01-09] MEDS: AMLODIPINE BESYLATE 5 MG TAB PO SCH (09:38)
[2018-01-09] MEDS: CIPROFLOXACIN 250 MG TAB PO SCH (09:39)
[2018-01-09] MEDS: PANTOprazole SOD 40 MG TAB PO SCH (09:39)
[2018-01-09] MEDS ORDERED: POTASSIUM CHLORIDE 20 MEQ TABCR PO STA (11:28)
[2018-01-09 12:05] VITALS: BP 189/124; PULSE 72; TEMP 36.5; O2SAT 95
[2018-01-09] MEDS: DOCUSATE SODIUM/SENNA 50/8.6MG TAB PO SCH (12:18)
[2018-01-09] MEDS: TRAMADOL HCL 50 MG TAB PO PRN (12:25)
[2018-01-09] MEDS ORDERED: NRV5 PO (14:26)
[2018-01-09] MEDS ORDERED: LOSA50TA36 PO (14:26)
[2018-01-09] MEDS ORDERED: CIPR250T3 PO (14:28)
[2018-01-09] MEDS ORDERED: IBUP-1459 PO (14:32)
[2018-01-09] MEDS ORDERED: ULT50X PO (14:40)
--- NOTE | 2018-01-09 14:44 | Progress Note ---
Internal Med Progress Note Date of Service: January 09, 2018. Provider Documentation: Subjective: Patient appears fatigued but not in acute pain. Physical Exam GENERAL: fatigued but not in acute pain SKIN: Normal color, warm. NECK: No JVD CHEST: CTABL, no wheezing CARDIOVASCULAR: Heart rhythm regular, no murmur. ABDOMEN: positive bowel sounds, no rebound tenderness, no guarding EXTREMITIES: No edema ASSESSMENT & PLAN: Hospital Course and Instructions Abdominal Ultrasound Nonspecific increased echogenicity of the pancreas without pancreatic ductal dilation identified. Slightly echogenic appearance of the liver without focal mass or intrahepatic biliary ductal dilation identified. The gallbladder is within normal limits without shadowing cholelithiasis, wall thickening or pericholecystic fluid collections. There is suggested minimal layering sludge within the gallbladder lumen. Common bile duct measures within the upper limits of normal at 6 mm. The imaged right kidney is unremarkable without hydronephrosis. IMPRESSION: 1. Minimal layering gallbladder sludge without cholelithiasis or sonographic evidence of acute cholecystitis. 2. No biliary ductal dilation. 3. Mildly echogenic appearance of the liver may reflect hepatic steatosis. Abdominal CT 1. Suggestion of minimal inflammatory stranding about the pancreatic head and uncinate process may reflect developing acute pancreatitis within the appropriate clinical setting. Correlate with lipase level. 2. No bowel obstruction or focal bowel wall thickening. Normal appendix. 3. Mild colonic diverticulosis without CT evidence of acute diverticulitis Assessment and Plan: This is a 37 year old female presented who presented with abdominal pain pain, nausea and vomiting, blood in emesis yesterday; lipase elevated and CT, u/s consistent w pancreatitis. + biliary sludge but no inflammation, stones, CBD was 6mm, LFTs normal. Pancreatitis -evaluated by gastroenterology -Patient received IV fluids -outpatient endoscopic ultrasound in 4-6 weeks -smoking cessation and avoiding alcohol encouraged, Low fat diet encouraged Red blood emesis reported on admission -evaluated by gastroenterology -H/H stable, no plans for endoscopy at this time Hypertensive urgency on admission / Hypertension -continue HCTZ/Losartan, continue Amlodipine at home Hypokalemia -serum potassium 3.2, oral 80 meq potassium given UTI -urine culture with gram negative bacilli, patient has cephalosporin allergy, started ciprofloxacin, given prescription on ciprofloxacin to finish antibiotic course at home for uncomplicated UTI Discharge Instructions Patient has outpatient primary care doctor follow up appointment 01/13/2018 1:00 PM Lily Eastman MD General Internal Medicine [facility] where patient should have pain medication regimen re-assessed, blood pressure re -assessed, repeat labs for hypokalemia, and any gastroenterology referrals as needed for the endoscopic ultrasound in 4-6 weeks with [facility] gastroenterology Vital Signs: Date Time Temp Pulse Resp B/P (MAP) Pulse Ox O2 Delivery O2 Flow Rate FiO2 01/09/18 12:05 36.5 72 18 189/124 (145) 95 Room Air 01/09/18 12:00 Room Air 01/09/18 08:08 36.7 75 20 164/114 (131) 97 Room Air 01/09/18 08:00 Room Air 01/09/18 04:00 Room Air 01/09/18 03:24 36.6 72 18 137/86 (103) 94 Room Air 01/08/18 23:59 Room Air 01/08/18 23:54 36.7 80 18 179/116 (137) 96 183/126 (145) 01/08/18 20:00 Room Air 01/08/18 19:38 36.6 77 20 197/130 (152) 98 Room Air 01/08/18 16:00 94 Room Air 01/08/18 15:09 36.8 69 19 178/123 (141) 94 Room Air 165/107 (126) 01/08/18 15:00 94 Room Air Lab Results: Results Past 24 Hours Test 01/08/18 15:45 01/09/18 06:41 Range/Units Urine Opiates Screen POS NEG Urine Methadone, Qualitative NEG NEG Urine Barbiturates NEG NEG Urine Phencyclidine (PCP) Level NEG NEG Ur Amphetamine/Methamphetamine NEG NEG MDMA (Ecstasy) Screen NEG NEG Urine Benzodiazepines Screen NEG NEG Urine Cocaine Metabolite NEG NEG Urine Marijuana (THC) NEG NEG White Blood Count 6.85 4.8-10.8 K/uL Red Blood Count 5.30 4.2-5.4 M/uL Hemoglobin 13.1 12.0-16.0 g/dL Hematocrit 39.9 37-47 % Mean Corpuscular Volume 75.3 80-100 fL Mean Corpuscular Hemoglobin 24.7 25-34 pg Mean Corpuscular Hemoglobin Concent 32.8 32-36 g/dl Platelet Count 233 130-400 K/uL Mean Platelet Volume 9.6 7.4-10.4 fL Neutrophils (%) (Auto) 59.8 % Lymphocytes (%) (Auto) 27.6 % Monocytes (%) (Auto) 7.9 % Eosinophils (%) (Auto) 4.2 % Basophils (%) (Auto) 0.4 % Neutrophils # (Auto) 4.09 1.4-6.5 K/uL Lymphocytes # (Auto) 1.89 1.2-3.4 K/uL Monocytes # (Auto) 0.54 0.11-0.59 K/uL Eosinophils # (Auto) 0.29 0-0.5 K/uL Basophils # (Auto) 0.03 0-0.2 K/uL RDW Standard Deviation 43.5 36.4-46.3 fL RDW Coefficient of Variation 16.0 11.5-14.5 % Immature Granulocyte % (Auto) 0.1 % Immature Granulocyte # (Auto) 0.01 0.00-0.02 K/uL Sodium Level 134 136-145 mmol/L Potassium Level 3.2 3.5-5.1 mmol/L Chloride Level 103 98-107 mmol/L Carbon Dioxide Level 27 21-32 mmol/L Anion Gap 4.0 3-11 mmol/L Blood Urea Nitrogen 12 7-18 mg/dl Creatinine 0.85 0.60-1.20 mg/dl Est Creatinine Clear Calc Drug Dose 104.4 ml/min Estimated GFR () 101.5 Estimated GFR (Non- 87.5 BUN/Creatinine Ratio 13.7 10-20 Random Glucose 86 70-99 mg/dl Calcium Level 9.0 8.5-10.1 mg/dl Magnesium Level 2.1 1.8-2.4 mg/dl Total Bilirubin 0.4 0.2-1 mg/dl Aspartate Amino Transf (AST/SGOT) 8 15-37 U/L Alanine Aminotransferase (ALT/SGPT) 15 12-78 U/L Alkaline Phosphatase 83 45-117 U/L Total Protein 6.4 6.4-8.2 gm/dl Albumin 2.9 3.4-5.0 gm/dl Globulin 3.5 2.5-4.0 gm/dl Albumin/Globulin Ratio 0.8 0.9-2 Triglycerides Level 104 0-150 mg/dl Cholesterol Level 161 0-200 mg/dl HDL Cholesterol 35 mg/dl LDL Cholesterol, Calculated 105 mg/dl VLDL Cholesterol, Calculated 21 mg/dl Cholesterol/HDL Ratio 4.6
--- NOTE | 2018-01-09 14:54 | Discharge Instructions ---
Discharge Instructions Date of Service January 09, 2018. Admission Reason for Admission: Hypertensive Urgency Discharge Discharge Diagnosis / Problem: pancreatitis, hypertensive urgency, hypertension , hypokalemia Discharge Goals Goal(s): Decrease discomfort, Improve function, Improve disease control Activity Recommendations Activity Limitations: per Instructions/Follow-up section Shower/Bathe: no limitations . Instructions / Follow-Up Instructions / Follow-Up Hospital Course and Instructions Abdominal Ultrasound Nonspecific increased echogenicity of the pancreas without pancreatic ductal dilation identified. Slightly echogenic appearance of the liver without focal mass or intrahepatic biliary ductal dilation identified. The gallbladder is within normal limits without shadowing cholelithiasis, wall thickening or pericholecystic fluid collections. There is suggested minimal layering sludge within the gallbladder lumen. Common bile duct measures within the upper limits of normal at 6 mm. The imaged right kidney is unremarkable without hydronephrosis. IMPRESSION: 1. Minimal layering gallbladder sludge without cholelithiasis or sonographic evidence of acute cholecystitis. 2. No biliary ductal dilation. 3. Mildly echogenic appearance of the liver may reflect hepatic steatosis. Abdominal CT 1. Suggestion of minimal inflammatory stranding about the pancreatic head and uncinate process may reflect developing acute pancreatitis within the appropriate clinical setting. Correlate with lipase level. 2. No bowel obstruction or focal bowel wall thickening. Normal appendix. 3. Mild colonic diverticulosis without CT evidence of acute diverticulitis Assessment and Plan: This is a 37 year old female presented who presented with abdominal pain pain, nausea and vomiting, blood in emesis yesterday; lipase elevated and CT, u/s consistent w pancreatitis. + biliary sludge but no inflammation, stones, CBD was 6mm, LFTs normal. Pancreatitis -evaluated by gastroenterology -Patient received IV fluids -outpatient endoscopic ultrasound in 4-6 weeks -smoking cessation and avoiding alcohol encouraged, Low fat diet encouraged Red blood emesis reported on admission -evaluated by gastroenterology -H/H stable, no plans for endoscopy at this time Hypertensive urgency on admission / Hypertension -continue HCTZ/Losartan, continue Amlodipine at home Hypokalemia -serum potassium 3.2, oral 80 meq potassium given UTI -urine culture with gram negative bacilli, patient has cephalosporin allergy, started ciprofloxacin, given prescription on ciprofloxacin to finish antibiotic course at home for uncomplicated UTI Discharge Instructions Patient has outpatient primary care doctor follow up appointment 01/13/2018 1:00 PM Lily Eastman MD General Internal Medicine [facility] where patient should have pain medication regimen re-assessed, blood pressure re -assessed, repeat labs for hypokalemia, and any gastroenterology referrals as needed for the endoscopic ultrasound in 4-6 weeks with [facility] Current Hospital Diet Patient's current hospital diet: Regular Diet Discharge Diet Recommended Diet: N/A (low fat diet) Pending Studies Studies pending at discharge: no Laboratory Results 01/09/18 06:41 Red Blood Count 5.30, Mean Corpuscular Volume 75.3, Mean Corpuscular Hemoglobin 24.7, Mean Corpuscular Hemoglobin Concent 32.8, Mean Platelet Volume 9.6, Neutrophils (%) (Auto) 59.8, Lymphocytes (%) (Auto) 27.6, Monocytes (%) (Auto) 7.9, Eosinophils (%) (Auto) 4.2, Basophils (%) (Auto) 0.4, Neutrophils # (Auto) 4.09, Lymphocytes # (Auto) 1.89, Monocytes # (Auto) 0.54, Eosinophils # (Auto) 0.29, Basophils # (Auto) 0.03 01/09/18 06:41 Test 01/07/18 15:55 01/07/18 17:25 01/08/18 05:09 01/08/18 15:45 Prothrombin Time 10.7 SECONDS (9.0-12.0) Prothromb Time International Ratio 1.0 (0.9-1.1) Activated Partial Thromboplast Time 26.4 SECONDS (21.0-31.0) Partial Thromboplastin Ratio 1.0 Troponin I < 0.015 ng/ml (0-0.045) Thyroid Stimulating Hormone (TSH) 1.410 uIu/ml (0.300-4.500) Urine Color YELLOW Urine Appearance CLOUDY (CLEAR) Urine pH 5.5 (4.5-7.5) Urine Specific [place] 1.020 (1.000-1.030) Urine Protein 1+ (NEG) Urine Glucose (UA) NEG (NEG) Urine Ketones TRACE (NEG) Urine Occult Blood 3+ (NEG) Urine Nitrite POS (NEG) Urine Bilirubin NEG (NEG) Urine Urobilinogen NEG (NEG) Urine Leukocyte Esterase SMALL (NEG) Urine WBC (Auto) >30 /hpf (0-5) Urine RBC (Auto) >30 /hpf (0-4) Urine Hyaline Casts (Auto) 5-10 /lpf (0-5) Urine Epithelial Cells (Auto) 20-30 /lpf (0-5) Urine Bacteria (Auto) 4+ (NEG) Urine Pathogenic Casts /lpf (0) Urine Test NEG (NEG) Lipase 267 U/L (73-393) Urine Opiates Screen POS (NEG) Urine Methadone, Qualitative NEG (NEG) Urine Barbiturates NEG (NEG) Urine Phencyclidine (PCP) Level NEG (NEG) Ur Amphetamine/Methamphetamine NEG (NEG) MDMA (Ecstasy) Screen NEG (NEG) Urine Benzodiazepines Screen NEG (NEG) Urine Cocaine Metabolite NEG (NEG) Urine Marijuana (THC) NEG (NEG) Test 01/09/18 06:41 White Blood Count 6.85 K/uL (4.8-10.8) Red Blood Count 5.30 M/uL (4.2-5.4) Hemoglobin 13.1 g/dL (12.0-16.0) Hematocrit 39.9 % (37-47) Mean Corpuscular Volume 75.3 fL (80-100) Mean Corpuscular Hemoglobin 24.7 pg (25-34) Mean Corpuscular Hemoglobin Concent 32.8 g/dl (32-36) Platelet Count 233 K/uL (130-400) Mean Platelet Volume 9.6 fL (7.4-10.4) Neutrophils (%) (Auto) 59.8 % Lymphocytes (%) (Auto) 27.6 % Monocytes (%) (Auto) 7.9 % Eosinophils (%) (Auto) 4.2 % Basophils (%) (Auto) 0.4 % Neutrophils # (Auto) 4.09 K/uL (1.4-6.5) Lymphocytes # (Auto) 1.89 K/uL (1.2-3.4) Monocytes # (Auto) 0.54 K/uL (0.11-0.59) Eosinophils # (Auto) 0.29 K/uL (0-0.5) Basophils # (Auto) 0.03 K/uL (0-0.2) RDW Standard Deviation 43.5 fL (36.4-46.3) RDW Coefficient of Variation 16.0 % (11.5-14.5) Immature Granulocyte % (Auto) 0.1 % Immature Granulocyte # (Auto) 0.01 K/uL (0.00-0.02) Anion Gap 4.0 mmol/L (3-11) Est Creatinine Clear Calc Drug Dose 104.4 ml/min Estimated GFR () 101.5 Estimated GFR (Non- 87.5 BUN/Creatinine Ratio 13.7 (10-20) Calcium Level 9.0 mg/dl (8.5-10.1) Magnesium Level 2.1 mg/dl (1.8-2.4) Total Bilirubin 0.4 mg/dl (0.2-1) Aspartate Amino Transf (AST/SGOT) 8 U/L (15-37) Alanine Aminotransferase (ALT/SGPT) 15 U/L (12-78) Alkaline Phosphatase 83 U/L (45-117) Total Protein 6.4 gm/dl (6.4-8.2) Albumin 2.9 gm/dl (3.4-5.0) Globulin 3.5 gm/dl (2.5-4.0) Albumin/Globulin Ratio 0.8 (0.9-2) Triglycerides Level 104 mg/dl (0-150) Cholesterol Level 161 mg/dl (0-200) HDL Cholesterol 35 mg/dl LDL Cholesterol, Calculated 105 mg/dl VLDL Cholesterol, Calculated 21 mg/dl Cholesterol/HDL Ratio 4.6 Date/Time Source Procedure Growth Status 01/07/18 17:25 Urine , Clean Catch Urine Culture - Final Escherichia Coli Complete Lipid Panel Test 01/09/18 06:41 Range/Units Triglycerides Level 104 0-150 mg/dl Cholesterol Level 161 0-200 mg/dl HDL Cholesterol 35 mg/dl Cholesterol/HDL Ratio 4.6 LDL Cholesterol, Calculated 105 mg/dl Medical Emergencies . Who to Call and When: Medical Emergencies: If at any time you feel your situation is an emergency, please call 911 immediately. . Non-Emergent Contact Non-Emergency issues call your: Primary Care Provider, Chemical Machine Tender Call Non-Emergent contact if: you have any medication questions . . "Provider Documentation" section prepared by Vincent Rosario. .
[2018-01-09 14:59] VITALS: BP 189/124; PULSE 72; TEMP 36.5; O2SAT 95
--- NOTE | 2018-01-09 15:15 | Discharge Summary ---
Discharge Summary Date of Service January 09, 2018. Discharge Summary Admission Date: January 07, 2018 at 21:40 Discharge Date: January 09, 2018 Discharge Disposition: Home Principal Diagnosis: pancreatitis, hypertensive urgency, hypertension, hypokalemia Medication Reconciliation New Medications: Ibuprofen (Motrin) 400 Mg Tab 400 MG PO Q6H PRN for Pain for 10 Days, #40 TAB Amlodipine Besylate (Amlodipine Besylate) 5 Mg Tab 5 MG PO QAM for 30 Days, #30 TAB Ciprofloxacin (Cipro) 250 Mg Tab 250 MG PO Q12H for 2 Days, #4 TAB Losartan Potassium & Hydrochlo (Losartan Potassium/Hydroc) 1 Tab Tab 2 TAB PO QAM for 30 Days, #60 TAB Tramadol HCl (Tramadol HCl) 50 Mg Tab 50 MG PO Q6H PRN for Pain for 4 Days, #16 TAB Admission Information HPI (per Admitting provider): CHIEF COMPLAINT: Abdominal pain. HISTORY OF PRESENT ILLNESS: History obtained from patient and records. Medical history significant for hypertension (medication noncompliance), mood disorder, anxiety, ongoing tobacco abuse. Two weeks history of upper achy abdominal pain precipitated by food intake, later on more constant, no bowel movement for 5 days, some nausea, no emesis, no chest pain, no shortness of breath. Today, she had an episode of hematemesis. Denies dysuria Intractable pain in the Emergency Room. Denies alcohol/NSAID intake. MEDICAL HISTORY: As above. She stopped taking multiple blood pressure medications (Norvasc,propranolol, verapamil, and losartan/HCTZ) for about 5 months now because "it was good without medications" SURGICAL HISTORY: She has had orthopedic procedures. MEDICATIONS: Home medications are none. ALLERGIES: ALLERGIC TO TYLENOL, ADHESIVE, SULFA, CODEINE, LATEX, PREGABALIN. FAMILY HISTORY: Diabetes and hypertension. PERSONAL AND SOCIAL HISTORY: One-fourth pack daily. No chronic intake of alcohol or abuse. 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 REVIEW OF SYSTEMS: As per HPI. All 10 systems reviewed, all other ROS negative. Physical Exam (per Admitting): PHYSICAL EXAMINATION: VITAL SIGNS: Blood pressure is noted to be 212/159, pulse 87, RR 20, temperature 36.7, saturations 97% on room air. GENERAL: uncomfortable, obese, in no respiratory distress. SKIN: Normal color, warm. HEENT: [place] palpebral conjunctivae no ptosis , dry buccal mucosa. NECK: Supple and nontender. CHEST: Clear. No tenderness. CARDIOVASCULAR: RRR, no murmur. ABDOMEN: Some distention, epigastric tenderness. EXTREMITIES: No edema, no LE tenderness, no other gross deformities except amputation stump NEUROLOGIC: Coherent, no gross focality. Hospital Course Hospital Course and Instructions Abdominal Ultrasound Nonspecific increased echogenicity of the pancreas without pancreatic ductal dilation identified. Slightly echogenic appearance of the liver without focal mass or intrahepatic biliary ductal dilation identified. The gallbladder is within normal limits without shadowing cholelithiasis, wall thickening or pericholecystic fluid collections. There is suggested minimal layering sludge within the gallbladder lumen. Common bile duct measures within the upper limits of normal at 6 mm. The imaged right kidney is unremarkable without hydronephrosis. IMPRESSION: 1. Minimal layering gallbladder sludge without cholelithiasis or sonographic evidence of acute cholecystitis. 2. No biliary ductal dilation. 3. Mildly echogenic appearance of the liver may reflect hepatic steatosis. Abdominal CT 1. Suggestion of minimal inflammatory stranding about the pancreatic head and uncinate process may reflect developing acute pancreatitis within the appropriate clinical setting. Correlate with lipase level. 2. No bowel obstruction or focal bowel wall thickening. Normal appendix. 3. Mild colonic diverticulosis without CT evidence of acute diverticulitis Assessment and Plan: This is a 37 year old female presented who presented with abdominal pain pain, nausea and vomiting, blood in emesis yesterday; lipase elevated and CT, u/s consistent w pancreatitis. + biliary sludge but no inflammation, stones, CBD was 6mm, LFTs normal. Pancreatitis -evaluated by gastroenterology -Patient received IV fluids -outpatient endoscopic ultrasound in 4-6 weeks -smoking cessation and avoiding alcohol encouraged, Low fat diet encouraged Red blood emesis reported on admission -evaluated by gastroenterology -H/H stable, no plans for endoscopy at this time Hypertensive urgency on admission / Hypertension -continue HCTZ/Losartan, continue Amlodipine at home Hypokalemia -serum potassium 3.2, oral 80 meq potassium given UTI -urine culture with gram negative bacilli, patient has cephalosporin allergy, started ciprofloxacin, given prescription on ciprofloxacin to finish antibiotic course at home for uncomplicated UTI Discharge Instructions Patient has outpatient primary care doctor follow up appointment 01/13/2018 1:00 PM Lily Eastman MD General Internal Medicine [facility] where patient should have pain medication regimen re-assessed, blood pressure re -assessed, repeat labs for hypokalemia, and any gastroenterology referrals as needed for the endoscopic ultrasound in 4-6 weeks with [facility] gastroenterology Total time spent on discharge = 40 minutes This includes examination of the patient, discharge planning, medication reconciliation, and communication with other providers. Discharge Instructions see above
--- NOTE | 2018-01-10 11:53 | EDITING REQUIRED CODING QUERY ---
CODING QUERY To promote full compliance with coding requirements relating to patient care, provider participation is requested in all cases of smash piecer uncertainty. Please assist us with the question(s) below: Coding Question(s): The H&P documents Upper Gastrointestinal Bleeding secondary to Possible Gastritis and patient is treated with IV PPI for the UGIB. There is no further documentation in the record regarding the possible source of the Upper GI Bleeding. Please specify below, in your clinical opinion. ( ) UGIB likely secondary to Gastritis ( ) UGIB with unknown likely source ( ) UGIB likely secondary to other source: Specify Physician's Response(s): The blood in the emesis could have been from above the stomach. But no source identified. Thank you Isabel Lopes Principal Diagnosis: "_that condition established after study, to be chiefly responsible for occasioning the admission of the patient to the hospital for care." Co-Existing Principal Diagnosis: "_when two or more diagnoses equally meet the criteria for principal diagnosis as determined by the circumstances of admission, diagnostic work up, and/or therapy provided, and the Alphabetic Index, Tabular List, or another coding guideline does not provide sequencing direction, any one of the diagnoses may be sequenced first." "When the physician has documented what appears to be a current diagnosis in the body of the record, but has not included the diagnosis in the final diagnostic statement, the physician should be asked whether the diagnosis should be added." (Source Coding Clinic 2 QTR90. p3-4)
== END 2018-01-09 15:19 | disposition home or self-care (01) | DRG 439 ==
LOC: C.EDB 14:25 → C.2T 20:02 → ENRESERV 20:22 → OBSVTOIN 21:40
PROVIDERS: ADMIT Internal Medicine; ATTEND Hospitalist
DX: K85.90 Acute pancreatitis without necrosis or infection, unspecified (principal); K92.0 Hematemesis; N39.0 Urinary tract infection, site not specified; N17.9 Acute kidney failure, unspecified; I16.0 Hypertensive urgency; B96.20 Unspecified Escherichia coli [E. coli] as the cause of diseases classified elsewhere; K29.70 Gastritis, unspecified, without bleeding; K82.8 Other specified diseases of gallbladder; E87.6 Hypokalemia; I10 Essential (primary) hypertension; E66.3 Overweight; F17.200 Nicotine dependence, unspecified, uncomplicated; Z68.31 Body mass index [BMI] 31.0-31.9, adult; Z91.14 Patient's other noncompliance with medication regimen; Z88.6 Allergy status to analgesic agent; Z88.5 Allergy status to narcotic agent; Z88.2 Allergy status to sulfonamides; Z88.8 Allergy status to other drugs, medicaments and biological substances; Z91.040 Latex allergy status; Z91.048 Other nonmedicinal substance allergy status; Z83.3 Family history of diabetes mellitus; Z82.49 Family history of ischemic heart disease and other diseases of the circulatory system

== ENCOUNTER 2018-01-23 21:01 | Inpatient (IN) | payer OTHER ==
[~2018-01-23] VITALS: Ht 170.2 cm; Wt 87.5 kg
[~2018-01-23 21:01] MED LIST: CIPR250T3 PO; LOSA50TA36 PO; NRV5 PO; ULT50X PO
[2018-01-23] MEDS ORDERED: DiphenhydrAMINE HCL 50 MG/ML VIAL IV STA (21:39)
[2018-01-23] MEDS ORDERED: METOCLOPRAMIDE HCL INJ 5 MG/ML 2 ML VIAL IV STA (21:39)
[2018-01-23] MEDS ORDERED: SODIUM CHLORIDE 0.9% 1000ML 1,000 ML IV STA ×2 (21:39)
[2018-01-23] MEDS ORDERED: KETOROLAC TROMETHAMINE 30 MG/ML VIAL IV STA (21:39)
--- NOTE | 2018-01-23 22:12 | DIAGNOSTIC IMAGING REPORT ---
SINGLE VIEW CHEST CLINICAL HISTORY: Atypical chest pain. FINDINGS: An AP, portable, upright chest radiograph is compared to study dated 11/20/2008. The examination is degraded by portable technique and patient rotation. The cardiomediastinal silhouette is unremarkable. The lungs and pleural spaces are clear. No pneumothorax is seen. The bony thorax is grossly intact. IMPRESSION: No active disease in the chest. Electronically signed by: Jim Diaz M.D. 01/23/2018 10:10 PM Dictated Date/Time: 01/23/2018 10:10 PM
[2018-01-23 22:19] LABS: BASO % 0.3 %; BASO ABS # 0.03 K/uL (0-0.2); EOS % 1.5 %; EOS ABS # 0.17 K/uL (0-0.5); HEMATOCRIT 38.5 % (37-47); IG# 0.04 K/uL (0.00-0.02); LYMPH % 23.9 %; LYMPH ABS # 2.75 K/uL (1.2-3.4); MEAN CORPUSCULAR HGB CONC 33.8 g/dl (32-36); MEAN PLATELET VOLUME 9.7 fL (7.4-10.4); MONO % 5.5 %; MONO ABS # 0.63 K/uL (0.11-0.59); NEUT % 68.5 %; NEUT ABS # 7.88 K/uL (1.4-6.5); PLATELET COUNT 296 K/uL (130-400); RED CELL DISTRIBUTION WIDTH SD 43.2 fL (36.4-46.3)
[2018-01-23] MEDS ORDERED: HYZ/50125 PO (22:37)
[2018-01-23] MEDS ORDERED: AMLO-110 PO (22:37)
[2018-01-23 22:42] LABS: ALBUMIN 3.2 gm/dl (3.4-5.0); ALKALINE PHOSPHATASE 89 U/L (45-117); ALT/SGPT 21 U/L (12-78); AST/SGOT 14 U/L (15-37); BLOOD UREA NITROGEN 22 mg/dl (7-18); CALCIUM 8.9 mg/dl (8.5-10.1); CARBON DIOXIDE 23 mmol/L (21-32); CREATININE 0.92 mg/dl (0.60-1.20); GLUCOSE 103 mg/dl (70-99); LIPASE 1488 U/L (73-393); POTASSIUM 3.6 mmol/L (3.5-5.1); SODIUM 139 mmol/L (136-145); TOTAL PROTEIN 6.9 gm/dl (6.4-8.2)
[2018-01-23] MEDS ORDERED: MoRPHine SULFATE 4 MG/ML 1 ML CARP\\VIAL IV STA (22:53)
[2018-01-24] MEDS ORDERED: SODIUM CHLORIDE 0.9% 1000ML 1,000 ML IV STA ×2 (00:41)
--- NOTE | 2018-01-24 00:42 | EMERGENCY ROOM VISIT NOTE ---
ED Visit Note First contact with patient: 21:24 The patient was seen and examined with Tahmina Boykin PA-C. I agree with the history, physical and findings. Please see the note for disposition and details.
--- NOTE | 2018-01-24 00:42 | EMERGENCY ROOM VISIT NOTE ---
History First contact with patient: 21:24 Chief Complaint: ILLNESS Stated Complaint: PANCREATITIS History of Present Illness The patient is a 37 year old female who presents to the Emergency Room with complaints of severe epigastric pain with nausea and vomiting for the past 2 days steadily getting worse. Patient is history of pancreatitis and symptoms feel similar. She was here 2 weeks ago with same complaint. CT was concerning for pancreatitis. Patient denies excessive alcohol use, chest pain, dyspnea, drug use, diarrhea, blood in emesis, cold symptoms, trauma. Patient states she has been able to eat and keep fluids down. She states she is an appointment next month with BERYL Beltran for further evaluation and workup. She does not know the doctor's name. She is supposed to have an endoscopic ultrasound. Review of Systems An 10 system review of systems was completed with positives and pertinent negatives listed in the HPI. Past Medical/Surgical History Medical Problems: (1) Anxiety State Nos (2) Chronic Pain Due To Trauma (3) Chronic pain of left ankle (4) Comminuted left ankle fracture (5) Depressive Disorder Nec (6) Hypertensive urgency (7) Pancreatitis (8) Tobacco Use Disorder Social History Smoking Status: Current Every Day Smoker Alcohol Use: occasionally Drug Use: none Marital Status: Housing Status: lives with family Occupation Status: employed Current/Historical Medications Scheduled Amlodipine (Norvasc), 5 MG PO DAILY Hctz/Losartan (Hyzaar 12.5MG/50MG), 2 TABS PO QAM Physical Exam Vital Signs Date Time Temp Pulse Resp B/P (MAP) Pulse Ox O2 Delivery O2 Flow Rate FiO2 01/24/18 00:16 61 16 163/116 99 Room Air 01/23/18 22:30 77 18 202/127 98 Room Air 01/23/18 22:24 79 01/23/18 22:16 99 Room Air 01/23/18 21:04 36.8 96 20 184/132 97 Room Air Physical Exam VITALS: Vitals are noted on the nurse's note and reviewed by myself. Vital signs hypertensive. GENERAL: White female writhing in pain, in no acute distress, nondiaphoretic, well-developed well-nourished. SKIN: The skin was without rashes, erythema, edema, or bruising. There is no tenting of the skin. Capillary reflex less than 2 seconds. HEAD: Normocephalic atraumatic. EARS: External auditory canals clear, tympanic membranes pearly dickson without erythema or effusion bilaterally. EYES: Pupils equal round and reactive to light and accommodation. Conjunctivae without injection, sclerae without icterus. Extraocular movements intact. NOSE: Patent, turbinates without inflammation or discharge. MOUTH: Mucous membranes mildly dry. Pharynx without erythema or exudate. Uvula midline. Airway patent. Tongue does not deviate. NECK: Supple without nuchal rigidity. No lymphadenopathy. No thyromegaly. Cervical spine is nontender. No JVD. HEART: Regular rate and rhythm without murmurs gallops or rubs. LUNGS: Clear to auscultation bilaterally without wheezes, rales or rhonchi. No retractions or accessory muscle use. ABDOMEN: Positive bowel sounds x 4. Normal tympanic percussion. Soft, tender to palpation epigastric region, without masses or organomegaly. Bolden sign negative. No guarding or rebound tenderness. No CVA tenderness MUSCULOSKELETAL: No muscle atrophy, erythema, or edema noted. NEURO: Patient was alert and oriented to person place and time. Normal sensation to light and sharp touch. No focal neurological deficits. Medical Decision & Procedures Laboratory Results 01/23/18 22:05 Red Blood Count 5.20, Mean Corpuscular Volume 74.0, Mean Corpuscular Hemoglobin 25.0, Mean Corpuscular Hemoglobin Concent 33.8, Mean Platelet Volume 9.7, Neutrophils (%) (Auto) 68.5, Lymphocytes (%) (Auto) 23.9, Monocytes (%) (Auto) 5.5, Eosinophils (%) (Auto) 1.5, Basophils (%) (Auto) 0.3, Neutrophils # (Auto) 7.88, Lymphocytes # (Auto) 2.75, Monocytes # (Auto) 0.63, Eosinophils # (Auto) 0.17, Basophils # (Auto) 0.03 01/23/18 22:05 Test 01/23/18 22:05 01/23/18 22:09 01/23/18 23:50 White Blood Count 11.50 K/uL (4.8-10.8) Red Blood Count 5.20 M/uL (4.2-5.4) Hemoglobin 13.0 g/dL (12.0-16.0) Hematocrit 38.5 % (37-47) Mean Corpuscular Volume 74.0 fL (80-100) Mean Corpuscular Hemoglobin 25.0 pg (25-34) Mean Corpuscular Hemoglobin Concent 33.8 g/dl (32-36) Platelet Count 296 K/uL (130-400) Mean Platelet Volume 9.7 fL (7.4-10.4) Neutrophils (%) (Auto) 68.5 % Lymphocytes (%) (Auto) 23.9 % Monocytes (%) (Auto) 5.5 % Eosinophils (%) (Auto) 1.5 % Basophils (%) (Auto) 0.3 % Neutrophils # (Auto) 7.88 K/uL (1.4-6.5) Lymphocytes # (Auto) 2.75 K/uL (1.2-3.4) Monocytes # (Auto) 0.63 K/uL (0.11-0.59) Eosinophils # (Auto) 0.17 K/uL (0-0.5) Basophils # (Auto) 0.03 K/uL (0-0.2) RDW Standard Deviation 43.2 fL (36.4-46.3) RDW Coefficient of Variation 16.0 % (11.5-14.5) Immature Granulocyte % (Auto) 0.3 % Immature Granulocyte # (Auto) 0.04 K/uL (0.00-0.02) Anion Gap 7.0 mmol/L (3-11) Est Creatinine Clear Calc Drug Dose 95.1 ml/min Estimated GFR () 92.2 Estimated GFR (Non- 79.5 BUN/Creatinine Ratio 23.4 (10-20) Calcium Level 8.9 mg/dl (8.5-10.1) Magnesium Level 1.8 mg/dl (1.8-2.4) Total Bilirubin 0.2 mg/dl (0.2-1) Direct Bilirubin < 0.1 mg/dl (0-0.2) Aspartate Amino Transf (AST/SGOT) 14 U/L (15-37) Alanine Aminotransferase (ALT/SGPT) 21 U/L (12-78) Alkaline Phosphatase 89 U/L (45-117) Total Protein 6.9 gm/dl (6.4-8.2) Albumin 3.2 gm/dl (3.4-5.0) Lipase 1488 U/L (73-393) Human Chorionic Gonadotropin, Qual NEG (NEG) Bedside Troponin I < 0.030 ng/ml (0-0.045) Medications Administered Medications (Trade) Dose Ordered Sig/Kathy Route Start Time Stop Time Status Last Admin Dose Admin Sodium Chloride 1,000 ml @ 999 mls/hr Q1H1M STAT IV 01/23/18 21:39 01/23/18 22:39 DC 01/23/18 22:07 999 MLS/HR Sodium Chloride 1,000 ml @ 125 mls/hr Q8H STAT IV 01/23/18 21:39 01/24/18 05:38 01/24/18 00:26 125 MLS/HR Metoclopramide HCl (Reglan Inj) 10 mg NOW STAT IV 01/23/18 21:39 01/23/18 21:41 DC 01/23/18 22:07 10 MG Diphenhydramine HCl (Benadryl Inj) 25 mg NOW STAT IV 01/23/18 21:39 01/23/18 21:41 DC 01/23/18 22:07 25 MG Ketorolac Tromethamine (Toradol Inj) 10 mg NOW STAT IV 01/23/18 21:39 01/23/18 21:41 DC 01/23/18 22:08 10 MG Morphine Sulfate (MoRPHine SULFATE INJ) 4 mg NOW STAT IV 01/23/18 22:53 01/23/18 22:54 DC 01/23/18 23:07 4 MG ED Course Prior records/ancillary studies reviewed. Triage Nursing notes reviewed. Additional history obtained from []. The patient's history was concerning for abdominal pain. Differential diagnosis: Etiologies such as appendicitis, diverticulitis, PUD, biliary pathology, UTI, pancreatitis, obstruction, mesenteric ischemia, aortic pathology, infections, inflammatory bowel disease, renal colic, as well as others were entertained. Physical examination findings: As above. ER treatment provided: Reglan, Benadryl, Toradol, morphine, IV fluids On reassessment the patient felt better. Diagnostics interpreted by me: ECG:Normal sinus, normal intervals, no acute ST-T wave changes. Impression normal sinus rhythm interpreted by myself The labs revealed Leukocytosis, elevated lipase Imaging studies: SINGLE VIEW CHEST CLINICAL HISTORY: Atypical chest pain. FINDINGS: An AP, portable, upright chest radiograph is compared to study dated 11/20/2008. The examination is degraded by portable technique and patient rotation. The cardiomediastinal silhouette is unremarkable. The lungs and pleural spaces are clear. No pneumothorax is seen. The bony thorax is grossly intact. IMPRESSION: No active disease in the chest. Electronically signed by: Jim Diaz M.D. US GALLBLADDER: Borderline dilatation of the pancreatic duct, 3 mm Nondilated CBD Liver and right kidney are unremarkable Gallbladder sludge without stones or wall thickening No free fluid Radiologist: Joshua Garvin MD ABDOMEN AND PELVIS CT WITHOUT CONTRAST CT DOSE: 636.25 mGy.cm HISTORY: Acute generalized abdominal pain abd pain TECHNIQUE: Multiaxial CT images of the abdomen and pelvis were performed without contrast. A dose lowering technique was utilized adhering to the principles of ALARA. COMPARISON STUDY: Right upper quadrant ultrasound of same day FINDINGS: Lung bases are clear. There is no pneumatosis or pneumoperitoneum identified. Imaged inferior cardiac chambers are unremarkable. Evaluation of the solid abdominal organs is limited without use of IV contrast. The liver, spleen,, gallbladder and adrenal glands are unremarkable. There is suggestion of minimal inflammatory stranding about the pancreatic head and uncinate process. Kidneys, ureters, urinary bladder, uterus and adnexa are unremarkable. Aorta is normal in course and caliber without aneurysm. No bulky adenopathy. No bowel obstruction or focal bowel wall thickening. Mild colonic diverticulosis without diverticulitis. I attenuating material seen within the right hemicolon. Normal appendix. Soft tissues are unremarkable. Mild multilevel facet arthrosis. IMPRESSION: 1. Suggestion of minimal inflammatory stranding about the pancreatic head and uncinate process may reflect developing acute pancreatitis within the appropriate clinical setting. Correlate with lipase level. 2. No bowel obstruction or focal bowel wall thickening. Normal appendix. 3. Mild colonic diverticulosis without CT evidence of acute diverticulitis. Electronically signed by: Joshua Jain M.D. Consultation: A consultation was placed with the hospitalist, Dr. Taveras. The case was discussed and diagnostics were reviewed. The patient was evaluated in the ER for further treatment. Exam and history seem consistent with pancreatitis. Patient was admitted 2 weeks ago for similar complaint. She denies any recent alcohol use. Ultrasound is concerning also for pancreatitis along with patient has an elevated lipase and leukocytosis. She was still moderate amount of pain. She will be evaluated by medicine. Patient was afebrile and nontoxic appearing. By the evaluation outlined above emergent etiologies such as appendicitis, diverticulitis, PUD, biliary pathology, UTI, obstruction, mesenteric ischemia, aortic pathology, infections, inflammatory bowel disease, renal colic, as well as others were deemed relatively unlikely. The pt informed about the findings as listed above. All questions were answered and pleased with the treatment. Case reviewed with my attending The chart was completed utilizing [employer] Speech voice recognition software. Grammatical errors, random word insertions, pronoun errors, and incomplete sentences are an occassional consequence of this system due to software limitations, ambient noise, and hardware issues. Any formal questions or concerns about the content, text, or information contained within the body of this dictation should be directly addressed to the physician mental health assistant for clarification. Medical Decision As above Blood Pressure Screening Patient's blood pressure: Elevated blood pressure Blood pressure disposition: Referred to PCP Impression Primary Impression: Pancreatitis Additional Impression: Hypertensive urgency Departure Information Dispostion Being Evaluated By Hospitalist Condition GOOD Referrals Lily Eastman M.D. (PCP) Patient Instructions My [facility] Problem Qualifiers Primary Impression: Pancreatitis Chronicity: acute Pancreatitis type: unspecified pancreatitis type Acute pancreatitis complication: unspecified Qualified Codes: K85.90 - Acute pancreatitis without necrosis or infection, unspecified
[2018-01-24] MEDS ORDERED: PROCHLORPERAZINE INJ 5 MG in SYRINGE 4 ML IV PRN (00:45)
[2018-01-24] MEDS ORDERED: TRAMADOL HCL 50 MG TAB PO PRN (00:45)
[2018-01-24 01:30] VITALS: BP 166/117; PULSE 67; TEMP 36.6; Ht 170.2 cm; Wt 87.5 kg
[2018-01-24] MEDS ORDERED: MoRPHine SULFATE 2 MG/ML CARP IV PRN (02:15)
[2018-01-24] MEDS: LACTATED RINGER'S 1000ML 1,000 ML IV SCH ×3 (03:03→16:13)
[2018-01-24] MEDS: TRAMADOL HCL 50 MG TAB PO PRN ×2 (03:07→23:39)
[2018-01-24] MEDS: KETOROLAC TROMETHAMINE 15 MG/ML VIAL IV. PRN (04:31)
[2018-01-24 04:35] VITALS: BP 176/105; PULSE 78
[2018-01-24] MEDS ORDERED: LOSARTAN POTASSIUM 50 MG TAB PO ONE (05:06)
[2018-01-24 06:01] LABS: BASO % 0.4 %; BASO ABS # 0.03 K/uL (0-0.2); EOS % 2.6 %; EOS ABS # 0.21 K/uL (0-0.5); HEMATOCRIT 37.9 % (37-47); HEMOGLOBIN 12.6 g/dL (12.0-16.0); IG# 0.03 K/uL (0.00-0.02); LYMPH % 31.7 %; LYMPH ABS # 2.57 K/uL (1.2-3.4); MEAN CELL VOLUME 73.9 fL (80-100); MEAN CORPUSCULAR HEMOGLOBIN 24.6 pg (25-34); MEAN CORPUSCULAR HGB CONC 33.2 g/dl (32-36); MEAN PLATELET VOLUME 9.8 fL (7.4-10.4); MONO ABS # 0.57 K/uL (0.11-0.59); NEUT % 57.9 %; PLATELET COUNT 266 K/uL (130-400); RED CELL DISTRIBUTION WIDTH SD 43.3 fL (36.4-46.3); WHITE BLOOD COUNT 8.11 K/uL (4.8-10.8)
[2018-01-24 06:35] LABS: ALBUMIN 2.7 gm/dl (3.4-5.0); CALCIUM 8.3 mg/dl (8.5-10.1); CREATININE 0.67 mg/dl (0.60-1.20); POTASSIUM 3.3 mmol/L (3.5-5.1); TOTAL PROTEIN 6.1 gm/dl (6.4-8.2)
--- NOTE | 2018-01-24 06:56 | DIAGNOSTIC IMAGING REPORT ---
GALLBLADDER-ABD LIMITED CLINICAL HISTORY: 37 years-old Female presenting with epi pain, ? Pancreatitis. TECHNIQUE: Real-time grayscale and limited color Doppler ultrasound imaging of the abdomen limited to the right upper quadrant was performed. COMPARISON: CT from 01/07/2018 and ultrasound from 01/07/2018. FINDINGS: Pancreas: Visualized portions of the pancreatic head and body normal. Mild prominence of the pancreatic duct. Liver: Normal echogenicity and echotexture. The liver measures 16.2 cm in maximal sagittal dimension. No sonographic evidence of hepatic mass. Main portal vein patent with normal directional flow. Biliary: No intrahepatic biliary ductal dilatation. Common bile duct measures up to 5 mm in diameter. Gallbladder: Gallbladder sludge. No evidence of gallstones, gallbladder wall thickening, gallbladder distention, or pericholecystic fluid or inflammatory change. Sonographic Bolden's sign negative. Right kidney: Normal in appearance without evidence of hydronephrosis. Ascites: None. Other: None. IMPRESSION: Gallbladder sludge. No cholelithiasis or significant biliary ductal dilatation. Electronically signed by: Sergo Anton M.D. 01/24/2018 6:55 AM Dictated Date/Time: 01/24/2018 6:52 AM
[2018-01-24] MEDS: ENOXAPARIN 40 MG/0.4 ML SYR SQ SCH (07:38)
[2018-01-24] MEDS ORDERED: MoRPHine SULFATE 4 MG/ML 1 ML CARP\\VIAL ONE (07:40)
[2018-01-24 07:48] VITALS: BP 165/112; PULSE 74; TEMP 36.7; O2SAT 97
[2018-01-24] MEDS: MoRPHine SULFATE 4 MG/ML 1 ML CARP\\VIAL IV PRN ×3 (07:48→19:58)
[2018-01-24] MEDS: AMLODIPINE BESYLATE 5 MG TAB PO SCH (07:50)
[2018-01-24] MEDS ORDERED: LOSARTAN POTASSIUM 50 MG TAB PO SCH (09:00)
--- NOTE | 2018-01-24 09:01 | HISTORY & PHYSICAL EXAMINATION ---
DATE OF ADMISSION: 01/24/2018 PRIMARY CARE DOCTOR: Dr. Eastman. CHIEF COMPLAINT: Abdominal pain. HISTORY OF PRESENT ILLNESS: History obtained from patient and records. Medical history significant for hypertension, mood/anxiety disorder, ongoing tobacco abuse, pancreatitis. Recent confinement about 2 weeks ago for acute pancreatitis, hypertensive urgency and UTI. Patient seen by GI. Outpatient endoscopic ultrasound contemplated in 4-6 weeks. Yesterday, patient was feeling uncomfortable. Later on last night, patient had upper achy abdominal pain, more on the left side, similar to pancreatitis episode. Denies fatty food, ETOH intake. Some nausea, emesis. No chest pain, no shortness of breath. MEDICAL HISTORY: As above. SURGERIES: Orthopedic procedures. HOME MEDICATIONS: Include Norvasc, HCTZ, losartan. ALLERGIES: ALLERGIC TO ADHESIVES, TYLENOL, CODEINE, CEPHALOSPORIN, PREGABALIN. FAMILY HISTORY: Diabetes, hypertension. PERSONAL SOCIAL HISTORY: One-fourth pack daily. 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 REVIEW OF SYSTEMS: As per HPI. All 10 systems reviewed. All other ROS negative. PHYSICAL EXAMINATION: VITAL SIGNS: Blood pressure was noted to be 202/127, later 163/68, pulse rate 61, RR 16, patient's sats 99 on room air, noted to be anxious. GENERAL: Obese. Looks older than stated age. Slightly uncomfortable SKIN: Normal color, warm. HEENT: [place] palpebral conjunctivae. No ptosis or mucosa. NECK: Short, supple. CHEST: Decreased effort, no tenderness. HEART: Regular rate and rhythm, no murmur. ABDOMEN: Upper abdominal tenderness, some distention. EXTREMITIES: No edema noted. No tenderness. No gross deformities. NEUROLOGIC: Coherent. No gross focality. LABORATORY DATA: Hemoglobin was noted to be 13, hematocrit 38, white cell 12, platelets noted to be at 296. Sodium 139, potassium 4, BUN 20, creatinine 0.9, glucose 103. Lipase was 1488. Chest x-ray showed no active disease. Gallbladder ultrasound showed initial read gallbladder sludge without stones, wall thickening, non dilated CBD. ASSESSMENT: 1. Recurrent pancreatitis gallbladder sludge on ultrasound. 2. HTN, elevated secondary to pain 3. past tobacco abuse. PLAN: GMF analgesia, bowel rest, IV fluids. GI consult, recurrent pancreatitis. Facilitate home antihypertensives Nicotine patch prn DVT prophylaxis, Lovenox subQ. Full code. MTDD
--- NOTE | 2018-01-24 14:35 | Gastrointestinal Consultation ---
Gastrointestinal Consultation Date of Consultation: January 24, 2018 Attending Physician: Dr. Rosario Consulting Physician: Dr. Marcial Reason for Consultation: Acute pancreatitis History of Present Illness Patient is a 37 year old female patient of Dr. Michael Eastman with a hx of anxiety, tobacco abuse, mood disorder, was admitted for acute pancreatitis from January 11-. At that time lipase was [address] with inflammation about the head and uncinate process. She was treated with resolution of acute symptoms and EUS for 02/11/[address] Brooks. Unfortunately, yesterday, this same upper abdomen pain returned. Regarding this episode, she states that her pain never completely resolved after her initial episode of pancreatitis. She is unsure if the pain is typically worse after meals. She is also very careful not to eat foods with any fat. Therefore, she is unable to tell me if this is worse after eating high fat foods. She has not had jaundice, acholic stools, pruritus or fevers. Yesterday, her pain became. "unbearable." On arrival, lipase 1488 (627 today). LFTs were not elevated. CT was not repeated. US with gallbladder sludge but no wall thickening or pericholecystic fluid and no biliary ductal dilation or wall thickening. The pt is seen and examined while she is sitting up on her bed. She also gets up and moves around the room at times. She is awake alert oriented and tells me that her pain is much better than yesterday. Past Medical/Surgical History Medical Problems: (1) Abdominal pain Status: Acute (2) Urinary tract infection Status: Acute Past Medical History: 1. Anxiety 2. smoking 3. UTI 4. Pancreatitis Past Surgical History: 1. Plastic surgery on ear 2. Ankle and cartilage repair Social History Smoking Status: Current Every Day Smoker Alcohol Use: occasionally Drug Use: none Marital Status: Housing Status: lives with family Occupation Status: employed Allergies Coded Allergies: Acetaminophen (Verified Allergy, Severe, THROAT SWELLING, 01/23/18) Cephalosporins (Verified Allergy, Severe, THROAT SWELLS, 01/23/18) Codeine (Verified Allergy, Severe, THROAT SWELLING, 01/24/18) Tolerates morphine Latex1 -Allergic Contact Dermititis (Verified Allergy, Unknown, ?, 01/23/18 ) Pregabalin (Verified Allergy, Unknown, `, 01/23/18) Adhesives (Verified Adverse Reaction, Intermediate, RASH, SKIN PEELING, ) Current Medications Home Meds and Scripts Medications Dose Route/Sig Max Daily Dose Days Date Category Dose Instructions Hyzaar 12.5MG/50MG (HCTZ/Losartan Potassium) Unknown Strength Tab 2 Tabs PO QAM 01/23/18 Reported UNKNOWN STRENGTH Norvasc (Amlodipine Besylate) 5 Mg Tab 5 Mg PO DAILY 01/23/18 Reported Review of Systems Constitutional: No fever, No chills, No sweats, No weight loss, No weakness Eyes: No eye pain, No redness ENT: No sore throat, No trouble swallowing, No pain on swallowing Respiratory: No cough, No wheezing, No shortness of breath, No dyspnea on exertion Cardiac: No chest pain, No edema, No palpitations Abdomen: + see HPI, + pain, + nausea, No vomiting, No diarrhea, No constipation , No GI bleeding, No dysphagia, No odynophagia, No acolic stools, No jaundice, No dark urine Neuro: No memory loss, No weakness, No numbness/tingling, No vertigo, No balance problems Psych: No depression symptoms, No anxiety, No insomnia Heme: No abnormal bleeding/bruising, No night sweats Endo: No excessive thirst, No excessive urination Skin: No rash, No itch, No new/changing skin lesions, No jaundice Physical Exam Date Time Temp Pulse Resp B/P (MAP) Pulse Ox O2 Delivery O2 Flow Rate FiO2 01/24/18 08:00 Room Air 01/24/18 07:48 36.7 74 18 165/112 (129) 97 01/24/18 04:35 78 176/105 (128) 01/24/18 02:00 73 16 165/102 98 01/24/18 01:30 36.6 67 16 166/117 Room Air 01/24/18 00:16 61 16 163/116 99 Room Air 01/23/18 22:30 77 18 202/127 98 Room Air 01/23/18 22:24 79 01/23/18 22:16 99 Room Air 01/23/18 21:04 36.8 96 20 184/132 97 Room Air General Appearance: + mild distress Eyes: normal inspection, EOMI Neck: supple, no adenopathy, thyroid normal, no JVD Respiratory/Chest: chest non-tender, lungs clear, normal breath sounds, no accessory muscle use Cardiovascular: regular rate, rhythm, no JVD, no murmur Abdomen: normal bowel sounds, soft, no organomegaly, + tenderness (Epigastric) Extremities: normal inspection, no pedal edema, normal capillary refill Neurologic/Psych: alert, normal mood/affect, oriented x 3 Skin: normal color, no jaundice, warm/dry, no rash Laboratory Results Last 24 Hours Test 01/23/18 22:05 01/23/18 22:09 01/24/18 00:10 01/24/18 05:31 White Blood Count 11.50 K/uL 8.11 K/uL Red Blood Count 5.20 M/uL 5.13 M/uL Hemoglobin 13.0 g/dL 12.6 g/dL Hematocrit 38.5 % 37.9 % Mean Corpuscular Volume 74.0 fL 73.9 fL Mean Corpuscular Hemoglobin 25.0 pg 24.6 pg Mean Corpuscular Hemoglobin Concent 33.8 g/dl 33.2 g/dl Platelet Count 296 K/uL 266 K/uL Mean Platelet Volume 9.7 fL 9.8 fL Neutrophils (%) (Auto) 68.5 % 57.9 % Lymphocytes (%) (Auto) 23.9 % 31.7 % Monocytes (%) (Auto) 5.5 % 7.0 % Eosinophils (%) (Auto) 1.5 % 2.6 % Basophils (%) (Auto) 0.3 % 0.4 % Neutrophils # (Auto) 7.88 K/uL 4.70 K/uL Lymphocytes # (Auto) 2.75 K/uL 2.57 K/uL Monocytes # (Auto) 0.63 K/uL 0.57 K/uL Eosinophils # (Auto) 0.17 K/uL 0.21 K/uL Basophils # (Auto) 0.03 K/uL 0.03 K/uL RDW Standard Deviation 43.2 fL 43.3 fL RDW Coefficient of Variation 16.0 % 16.0 % Immature Granulocyte % (Auto) 0.3 % 0.4 % Immature Granulocyte # (Auto) 0.04 K/uL 0.03 K/uL Sodium Level 139 mmol/L 139 mmol/L Potassium Level 3.6 mmol/L 3.3 mmol/L Chloride Level 109 mmol/L 111 mmol/L Carbon Dioxide Level 23 mmol/L 22 mmol/L Anion Gap 7.0 mmol/L 6.0 mmol/L Blood Urea Nitrogen 22 mg/dl 13 mg/dl Creatinine 0.92 mg/dl 0.67 mg/dl Est Creatinine Clear Calc Drug Dose 95.1 ml/min 130.6 ml/min Estimated GFR () 92.2 130.1 Estimated GFR (Non- 79.5 112.3 BUN/Creatinine Ratio 23.4 19.1 Random Glucose 103 mg/dl 92 mg/dl Calcium Level 8.9 mg/dl 8.3 mg/dl Magnesium Level 1.8 mg/dl Total Bilirubin 0.2 mg/dl 0.4 mg/dl Direct Bilirubin < 0.1 mg/dl Aspartate Amino Transf (AST/SGOT) 14 U/L 11 U/L Alanine Aminotransferase (ALT/SGPT) 21 U/L 18 U/L Alkaline Phosphatase 89 U/L 79 U/L Total Protein 6.9 gm/dl 6.1 gm/dl Albumin 3.2 gm/dl 2.7 gm/dl Lipase 1488 U/L 627 U/L Human Chorionic Gonadotropin, Qual NEG Bedside Troponin I < 0.030 ng/ml Urine Color YELLOW Urine Appearance CLEAR Urine pH 6.0 Urine Specific [place] 1.015 Urine Protein NEG Urine Glucose (UA) NEG Urine Ketones NEG Urine Occult Blood NEG Urine Nitrite NEG Urine Bilirubin NEG Urine Urobilinogen NEG Urine Leukocyte Esterase NEG Urine Opiates Screen NEG Urine Methadone, Qualitative NEG Urine Barbiturates NEG Urine Phencyclidine (PCP) Level NEG Ur Amphetamine/Methamphetamine NEG MDMA (Ecstasy) Screen NEG Urine Benzodiazepines Screen NEG Urine Cocaine Metabolite NEG Urine Marijuana (THC) NEG Globulin 3.4 gm/dl Albumin/Globulin Ratio 0.8 US 01/23/18: Biliary: No intrahepatic biliary ductal dilatation. Common bile duct measures up to 5 mm in diameter. Gallbladder: Gallbladder sludge. No evidence of gallstones, gallbladder wall thickening, gallbladder distention, or pericholecystic fluid or inflammatory change. Sonographic Bolden's sign negative. Non contrast CT abd/pelvis 01/07/18: 1. Suggestion of minimal inflammatory stranding about the pancreatic head and uncinate process may reflect developing acute pancreatitis within the appropriate clinical setting. Correlate with lipase level. 2. No bowel obstruction or focal bowel wall thickening. Normal appendix. 3. Mild colonic diverticulosis without CT evidence of acute diverticulitis Impression Patient is a 37 year old female with a second episode of acute pancreatitis versus unresolved initial episode of acute pancreatitis. The cause of the pancreatitis is uncertain. She did have sludge in the gallbladder on imaging during both episodes. She denies ever having been in heavy alcoholic drinker and states that she has not had any alcohol in 3 months. She denies any new medications. Plan 1. Surgical consult to consider cholecystectomy. 2. Begin Clear liquid diet. 3. Plan for OP EUS in 6 weeks.This was already scheduled fo 02/26/18 but will be moved. Our office will contact her to arrange. I performed a history and physical examination of the patient, including specifically no tenderness on exam. I have discussed the patient's management with Victoriano Rossi. Please refer to the PIG LEAD MELTER HELPER's note for the documented findings and plan of care. Mild acute biliary pancreatitis due to microlithiasis. Clinically improving. LFTs normal. Needs cholecystectomy. IV hydration. Diet as tolerated. Recall GI if needed.
[2018-01-24 14:44] VITALS: BP 161/109; PULSE 69; TEMP 36.6; O2SAT 95
[2018-01-24] MEDS: hydrOXYzine HCL 10 MG TAB PO PRN (16:15)
--- NOTE | 2018-01-24 19:49 | Progress Note ---
Progress Note Date of Service January 24, 2018. Progress Note Subjective Patient was examined earlier today and reports that her abdominal symptoms has become worse in recent days. On re-visit by medical doctor, patient sleeping Physical Exam from earlier today General: no acute distress Lungs: CTABL, no wheezing Heart rate: regular rate Abdomen: soft, tenderness is more towards the upper epigastrium as per patient Extremities: no edema Assessment and Plan This is a patient with a second episode of acute pancreatitis versus unresolved initial episode of acute pancreatitis. -care for possible recurrent pancreatitis has been supportive with IV fluid sand pain medications -at this time, there are no acute interventions by gastroenterology -gastroenterology service advises clear liquid diet and again to have outpatient EUS as per recommendations similar to previous hospital stay -gastroenterology service did request general surgery consult to evaluate the patient whether a cholecystectomy is needed -gallbladder ultrasound on admission notable for gallbladder sludge Hypertension -continue pain medications, continue Losartan and amlodipine Tobacco use -Nicotine patch DVT prophylaxis, Lovenox subQ. Full code.
--- NOTE | 2018-01-24 20:32 | Pre-Operative Consultation ---
History General Date of Service: January 24, 2018. HPI HPI: The patient is a 37 year old female being seen for pancreatitis probably from sludge/small stones that passed through CBD. She was admitted from Emergency Room with complaints of severe epigastric pain with nausea and vomiting. The patient is history of pancreatitis, a CT was concerning for pancreatitis. Patient denies excessive alcohol use, chest pain, dyspnea, drug use, diarrhea, blood in emesis, cold symptoms, trauma. Patient states she has been able to eat and keep fluids down. She is NPO and has some discomfort but feels better. Her pancreatic enzymes are trending down. Historian: patient Procedure Urgency: Acute Risk Assessment Daily beta yancy use?: No Problem List Medical Problems: (1) Abdominal pain Status: Acute (2) Urinary tract infection Status: Acute Medical & Surgical History Past Medical History: anxiety, depression, hypertension, previous fracture, other (tobacco) Past Surgical History: other (left LLE orthopedic procedure) Family History Family History: no pertinent family hx Social History Hx Tobacco Use In Past Year?: Yes Smoking Status: Current Every Day Smoker Alcohol: occasionally Drug Use: none Marital status: Occupation status: employed Immunizations Have You Had Influenza Vaccine: No Have You Had Tetanus Vaccine: Yes History of Pneumococcal: No History Hepatitis B Vaccine: No Allergies Allergies: Coded Allergies: Acetaminophen (Verified Allergy, Severe, THROAT SWELLING, 01/23/18) Cephalosporins (Verified Allergy, Severe, THROAT SWELLS, 01/23/18) Codeine (Verified Allergy, Severe, THROAT SWELLING, 01/24/18) Tolerates morphine Latex1 -Allergic Contact Dermititis (Verified Allergy, Unknown, ?, 01/23/18 ) Pregabalin (Verified Allergy, Unknown, `, 01/23/18) Adhesives (Verified Adverse Reaction, Intermediate, RASH, SKIN PEELING, ) Medications Current Inpatient Medications Current Inpatient Medications Medications (Trade) Dose Ordered Sig/Kathy Route Start Time Stop Time Status Last Admin Dose Admin Amlodipine Besylate (Norvasc Tab) 5 mg DAILY PO 01/24/18 09:00 02/23/18 08:59 01/24/18 07:50 5 MG Lactated Ringer's 1,000 ml @ 150 mls/hr Q6H40M IV 01/24/18 00:45 02/23/18 00:44 01/24/18 16:13 150 MLS/HR Prochlorperazine Edisylate 5 mg/ Syringe 5 ml @ 5 mls/min Q6H PRN IV 01/24/18 00:45 02/23/18 00:44 01/24/18 01:34 5 MLS/MIN Ketorolac Tromethamine (Toradol Inj) 15 mg Q6H PRN IV. 01/24/18 00:45 01/29/18 00:44 01/24/18 04:31 15 MG Tramadol HCl (Ultram Tab) pain Q6H PRN PO 01/24/18 02:30 02/23/18 00:44 01/24/18 03:07 50 MG Enoxaparin Sodium (Lovenox Inj) 40 mg Q24H SQ 01/24/18 09:00 02/23/18 08:59 Hydroxyzine HCl (Vistaril Tab) 10 mg Q6H PRN PO 01/24/18 02:15 02/23/18 02:14 01/24/18 16:15 10 MG Losartan Potassium (coZAAR TAB) 50 mg QAM PO 01/25/18 09:00 02/23/18 08:59 Morphine Sulfate (MoRPHine SULFATE INJ) 4 mg Q6H PRN IV 01/24/18 08:00 02/07/18 07:59 01/24/18 19:58 4 MG Review of Systems Review of Systems Constitutional: denies chills, denies diaphoresis, denies fever Eyes: reports: no symptoms ENT: reports: no symptoms reported Cardiovascular: denies: chest pain, chest tightness, chest pressure, palpitations, syncope Respiratory: denies: orthopnea, short of breath, stridor, wheezing, sputum production Gastrointestinal: abdominal pain, denies constipation, denies diarrhea, nausea , vomiting Genitourinary - Female: reports: no symptoms Musculoskeletal: denies back pain, joint pain, muscle stiffness Integumentary: denies change in hair/nails, denies dryness, denies lumps, denies rash Neurologic: reports: no symptoms Psychiatric: reports: anxiety, depression Endocrine: no symptoms Hematologic / Lymphatic: no symptoms Allergic / Immunologic: no symptoms Physical Exam Physical Exam General Appearance: + WD/WN, No distress Ears, Nose, Throat: + normal ENT inspection Neck: No tracheal deviation, No lymphadenophy, No stiffness, No tenderness Respiratory: No decreased breath sounds, No rhonchi, No stridor, No wheezing Cardiovascular: No tachycardia, No gallop/S3, No diastolic murmur, No gallop/S4 , No bradycardia, No systolic murmur Abdomen: + tenderness, No abnormal bowel sounds, No rebound, No distension, No hernia, No organomegaly, No guarding Extremities: No deformity, No swelling, No calf tenderness, No inflammation Neurologic/Psychiatric: + motor deficit/weakness, No disorientation, No sensory deficit Skin Characteristics: No abnormal color, No diaphoresis, No pallor, No jaundice , No rash Lymphatic: No abnormal adenopathy Diagnostics Labs Labs Results Past 24 Hours Test 01/23/18 22:05 01/23/18 22:09 01/24/18 00:10 01/24/18 05:31 Range/Units White Blood Count 11.50 8.11 4.8-10.8 K/uL Red Blood Count 5.20 5.13 4.2-5.4 M/uL Hemoglobin 13.0 12.6 12.0-16.0 g/dL Hematocrit 38.5 37.9 37-47 % Mean Corpuscular Volume 74.0 73.9 80-100 fL Mean Corpuscular Hemoglobin 25.0 24.6 25-34 pg Mean Corpuscular Hemoglobin Concent 33.8 33.2 32-36 g/dl Platelet Count 296 266 130-400 K/uL Mean Platelet Volume 9.7 9.8 7.4-10.4 fL Neutrophils (%) (Auto) 68.5 57.9 % Lymphocytes (%) (Auto) 23.9 31.7 % Monocytes (%) (Auto) 5.5 7.0 % Eosinophils (%) (Auto) 1.5 2.6 % Basophils (%) (Auto) 0.3 0.4 % Neutrophils # (Auto) 7.88 4.70 1.4-6.5 K/uL Lymphocytes # (Auto) 2.75 2.57 1.2-3.4 K/uL Monocytes # (Auto) 0.63 0.57 0.11-0.59 K/uL Eosinophils # (Auto) 0.17 0.21 0-0.5 K/uL Basophils # (Auto) 0.03 0.03 0-0.2 K/uL RDW Standard Deviation 43.2 43.3 36.4-46.3 fL RDW Coefficient of Variation 16.0 16.0 11.5-14.5 % Immature Granulocyte % (Auto) 0.3 0.4 % Immature Granulocyte # (Auto) 0.04 0.03 0.00-0.02 K/uL Sodium Level 139 139 136-145 mmol/L Potassium Level 3.6 3.3 3.5-5.1 mmol/L Chloride Level 109 111 98-107 mmol/L Carbon Dioxide Level 23 22 21-32 mmol/L Anion Gap 7.0 6.0 3-11 mmol/L Blood Urea Nitrogen 22 13 7-18 mg/dl Creatinine 0.92 0.67 0.60-1.20 mg/dl Est Creatinine Clear Calc Drug Dose 95.1 130.6 ml/min Estimated GFR () 92.2 130.1 Estimated GFR (Non- 79.5 112.3 BUN/Creatinine Ratio 23.4 19.1 10-20 Random Glucose 103 92 70-99 mg/dl Calcium Level 8.9 8.3 8.5-10.1 mg/dl Magnesium Level 1.8 1.8-2.4 mg/dl Total Bilirubin 0.2 0.4 0.2-1 mg/dl Direct Bilirubin < 0.1 0-0.2 mg/dl Aspartate Amino Transf (AST/SGOT) 14 11 15-37 U/L Alanine Aminotransferase (ALT/SGPT) 21 18 12-78 U/L Alkaline Phosphatase 89 79 45-117 U/L Total Protein 6.9 6.1 6.4-8.2 gm/dl Albumin 3.2 2.7 3.4-5.0 gm/dl Lipase 1488 627 73-393 U/L Human Chorionic Gonadotropin, Qual NEG NEG Bedside Troponin I < 0.030 0-0.045 ng/ml Urine Color YELLOW Urine Appearance CLEAR CLEAR Urine pH 6.0 4.5-7.5 Urine Specific Winters 1.015 1.000-1.030 Urine Protein NEG NEG Urine Glucose (UA) NEG NEG Urine Ketones NEG NEG Urine Occult Blood NEG NEG Urine Nitrite NEG NEG Urine Bilirubin NEG NEG Urine Urobilinogen NEG NEG Urine Leukocyte Esterase NEG NEG Urine Opiates Screen NEG NEG Urine Methadone, Qualitative NEG NEG Urine Barbiturates NEG NEG Urine Phencyclidine (PCP) Level NEG NEG Ur Amphetamine/Methamphetamine NEG NEG MDMA (Ecstasy) Screen NEG NEG Urine Benzodiazepines Screen NEG NEG Urine Cocaine Metabolite NEG NEG Urine Marijuana (THC) NEG NEG Globulin 3.4 2.5-4.0 gm/dl Albumin/Globulin Ratio 0.8 0.9-2 Diagnostic Radiology Diagnostic Radiology GALLBLADDER-ABD LIMITED CLINICAL HISTORY: 37 years-old Female presenting with epi pain, ? Pancreatitis. TECHNIQUE: Real-time grayscale and limited color Doppler ultrasound imaging of the abdomen limited to the right upper quadrant was performed. COMPARISON: CT from 01/07/2018 and ultrasound from 01/07/2018. FINDINGS: Pancreas: Visualized portions of the pancreatic head and body normal. Mild prominence of the pancreatic duct. Liver: Normal echogenicity and echotexture. The liver measures 16.2 cm in maximal sagittal dimension. No sonographic evidence of hepatic mass. Main portal vein patent with normal directional flow. Biliary: No intrahepatic biliary ductal dilatation. Common bile duct measures up to 5 mm in diameter. Gallbladder: Gallbladder sludge. No evidence of gallstones, gallbladder wall thickening, gallbladder distention, or pericholecystic fluid or inflammatory change. Sonographic Bolden's sign negative. Right kidney: Normal in appearance without evidence of hydronephrosis. Ascites: None. Other: None. IMPRESSION: Gallbladder sludge. No cholelithiasis or significant biliary ductal dilatation. Impression Assessment and Plan Assessment and Plan Pancreatitis likely from sludge or small stones -resolving -liquids -once enzymes normalizes and clinical picture improved will need GB out -likely lap kwame on Saturday
[2018-01-24] MEDS ORDERED: NURSING VERBAL MED ORDER ONE (22:00)
[2018-01-24 22:54] VITALS: BP 167/96; PULSE 59; TEMP 36.6; O2SAT 99
[2018-01-25] MEDS: MoRPHine SULFATE 4 MG/ML 1 ML CARP\\VIAL IV PRN ×3 (03:46→17:59)
[2018-01-25] MEDS: AMLODIPINE BESYLATE 5 MG TAB PO SCH (07:10)
[2018-01-25 07:33] VITALS: BP_SYST 153; BP_SYST 166; BP_DIAS 104; BP_DIAS 105; PULSE 69; TEMP 36.8; O2SAT 95
[2018-01-25 08:03] LABS: BASO % 0.4 %; BASO ABS # 0.03 K/uL (0-0.2); EOS % 2.7 %; HEMATOCRIT 39.6 % (37-47); HEMOGLOBIN 13.2 g/dL (12.0-16.0); IG# 0.01 K/uL (0.00-0.02); LYMPH % 27.5 %; LYMPH ABS # 2.05 K/uL (1.2-3.4); MEAN CELL VOLUME 74.6 fL (80-100); MEAN CORPUSCULAR HEMOGLOBIN 24.9 pg (25-34); MEAN CORPUSCULAR HGB CONC 33.3 g/dl (32-36); MEAN PLATELET VOLUME 9.7 fL (7.4-10.4); MONO % 7.2 %; MONO ABS # 0.54 K/uL (0.11-0.59); NEUT % 62.1 %; NEUT ABS # 4.63 K/uL (1.4-6.5); PLATELET COUNT 287 K/uL (130-400); RED CELL DISTRIBUTION WIDTH CV 16.3 % (11.5-14.5); RED CELL DISTRIBUTION WIDTH SD 44.5 fL (36.4-46.3); WHITE BLOOD COUNT 7.46 K/uL (4.8-10.8)
[2018-01-25 08:41] LABS: CALCIUM 8.8 mg/dl (8.5-10.1); CREATININE 0.8 mg/dl (0.60-1.20); POTASSIUM 3.6 mmol/L (3.5-5.1); TOTAL PROTEIN 6.6 gm/dl (6.4-8.2)
[2018-01-25] MEDS ORDERED: LOSARTAN POTASSIUM 50 MG TAB PO SCH (09:00)
[2018-01-25] MEDS: ENOXAPARIN 40 MG/0.4 ML SYR SQ SCH (09:00)
[2018-01-25] MEDS: TRAMADOL HCL 50 MG TAB PO PRN ×3 (09:28→23:32)
[2018-01-25 09:35] VITALS: BP_SYST 135; BP_SYST 139; BP_DIAS 101; BP_DIAS 104; PULSE 65; PULSE 69
[2018-01-25 11:05] VITALS: BP 137/88; PULSE 55
--- NOTE | 2018-01-25 11:43 | Surgery Progress Note ---
Surgery Progress Note Date of Service January 25, 2018. Subjective Post OP Day: HD 2 + feeling well, + complaints (pain almost gone), + flatus, No nausea, No vomiting Objective Vital Signs: Date Time Temp Pulse Resp B/P (MAP) Pulse Ox O2 Delivery O2 Flow Rate FiO2 01/25/18 11:05 55 137/88 (104) 01/25/18 09:35 65 139/101 (114) 69 135/104 (114) 01/25/18 08:56 Room Air 01/25/18 07:33 36.8 69 18 166/104 (124) 95 153/105 (121) 01/25/18 00:00 Room Air 01/24/18 22:54 36.6 59 18 167/96 (119) 99 Room Air 01/24/18 16:00 Room Air 01/24/18 14:44 36.6 69 18 161/109 (126) 95 General Appearance: WD/WN, no apparent distress Head: normocephalic, atraumatic Neck: supple, trachea midline Respiratory/Chest: chest non-tender, lungs clear Cardiovascular: regular rate, rhythm, no gallop, no murmur Abdomen: normal bowel sounds, non distended, soft, + tenderness Extremities: non-tender, no pedal edema Laboratory Results: Results Past 24 Hours Test 01/25/18 07:19 Range/Units White Blood Count 7.46 4.8-10.8 K/uL Red Blood Count 5.31 4.2-5.4 M/uL Hemoglobin 13.2 12.0-16.0 g/dL Hematocrit 39.6 37-47 % Mean Corpuscular Volume 74.6 80-100 fL Mean Corpuscular Hemoglobin 24.9 25-34 pg Mean Corpuscular Hemoglobin Concent 33.3 32-36 g/dl Platelet Count 287 130-400 K/uL Mean Platelet Volume 9.7 7.4-10.4 fL Neutrophils (%) (Auto) 62.1 % Lymphocytes (%) (Auto) 27.5 % Monocytes (%) (Auto) 7.2 % Eosinophils (%) (Auto) 2.7 % Basophils (%) (Auto) 0.4 % Neutrophils # (Auto) 4.63 1.4-6.5 K/uL Lymphocytes # (Auto) 2.05 1.2-3.4 K/uL Monocytes # (Auto) 0.54 0.11-0.59 K/uL Eosinophils # (Auto) 0.20 0-0.5 K/uL Basophils # (Auto) 0.03 0-0.2 K/uL RDW Standard Deviation 44.5 36.4-46.3 fL RDW Coefficient of Variation 16.3 11.5-14.5 % Immature Granulocyte % (Auto) 0.1 % Immature Granulocyte # (Auto) 0.01 0.00-0.02 K/uL Sodium Level 140 136-145 mmol/L Potassium Level 3.6 3.5-5.1 mmol/L Chloride Level 107 98-107 mmol/L Carbon Dioxide Level 27 21-32 mmol/L Anion Gap 5.0 3-11 mmol/L Blood Urea Nitrogen 8 7-18 mg/dl Creatinine 0.80 0.60-1.20 mg/dl Est Creatinine Clear Calc Drug Dose 109.4 ml/min Estimated GFR () 109.2 Estimated GFR (Non- 94.2 BUN/Creatinine Ratio 10.0 10-20 Random Glucose 91 70-99 mg/dl Calcium Level 8.8 8.5-10.1 mg/dl Total Bilirubin 0.3 0.2-1 mg/dl Aspartate Amino Transf (AST/SGOT) 14 15-37 U/L Alanine Aminotransferase (ALT/SGPT) 18 12-78 U/L Alkaline Phosphatase 83 45-117 U/L Total Protein 6.6 6.4-8.2 gm/dl Albumin 3.0 3.4-5.0 gm/dl Globulin 3.6 2.5-4.0 gm/dl Albumin/Globulin Ratio 0.8 0.9-2 Lipase 579 73-393 U/L Assessment & Plan pancreatitis from gallbladder disease, sluge or small stones -enzymes almost normal -plan lap kwame w/possible IOC in AM
[2018-01-25] MEDS: KETOROLAC TROMETHAMINE 15 MG/ML VIAL IV. PRN (14:53)
[2018-01-25 15:41] VITALS: BP 155/113; PULSE 95; TEMP 36.6; O2SAT 96
[2018-01-25] MEDS: hydrOXYzine HCL 10 MG TAB PO PRN (19:06)
--- NOTE | 2018-01-25 19:42 | Progress Note ---
Progress Note Date of Service January 25, 2018. Progress Note Subjective Patient is doing better today in terms of abdominal discomfort. More cheerful. Pain is more controlled. Physical Exam General: no acute distress Lungs: CTABL, no wheezing Heart rate: regular rate Abdomen: soft, abdomen is not as tender compared to yesterday Extremities: no edema Assessment and Plan This is a patient with a second episode of acute pancreatitis versus unresolved initial episode of acute pancreatitis. -care for possible recurrent pancreatitis has been supportive with IV fluid sand pain medications -at this time, there are no acute interventions by gastroenterology -gastroenterology service advises clear liquid diet and again to have outpatient EUS as per recommendations similar to previous hospital stay -gastroenterology service did request general surgery consult to evaluate the patient whether a cholecystectomy is needed -gallbladder ultrasound on admission notable for gallbladder sludge -Patient is NPO after midnight for General surgery for cholecystomy Hypertension -continue pain medications, continue Losartan and amlodipine Tobacco use -Nicotine patch DVT prophylaxis, Lovenox subQ, Hold Lovenox in the AM prior to surgery Full code.
[2018-01-25] MEDS ORDERED: LOSARTAN POTASSIUM 50 MG TAB PO ONE (22:22)
[2018-01-25 23:20] VITALS: BP_SYST 162; BP_DIAS 113; BP_DIAS 118; PULSE 60; TEMP 36.6; O2SAT 96
[2018-01-26] VITALS (9 sets, daily range): BP systolic 120–165; BP diastolic 73–105; PULSE 56–71; TEMP 36.5–36.8; O2SAT 93–98
[2018-01-26] MEDS: MoRPHine SULFATE 4 MG/ML 1 ML CARP\\VIAL IV PRN ×6 (00:32→22:19)
[2018-01-26] MEDS ORDERED: BUPIVACAINE 0.5 % 5 MG/1 ML MPF 30ML VIAL ONE (06:57)
[2018-01-26] MEDS ORDERED: EpINEphrine INJ 1MG/ML AMP 1 MG/ML AMP ONE (06:58)
[2018-01-26] MEDS ORDERED: ROCURONIUM BROMIDE 10 MG/ML 5 ML VIAL ONE (07:02)
[2018-01-26] MEDS ORDERED: FENTANYL CITRATE INJ 50 MCG/1 ML 2 ML VIAL ONE ×4 (07:02→08:56)
[2018-01-26] MEDS ORDERED: MIDAZOLAM HCL 1 MG/ML 2ML VIAL ONE (07:02)
[2018-01-26] MEDS ORDERED: LIDOCAINE HCL 2% 2 ML VIAL (20MG/ML) ONE (07:02)
[2018-01-26] MEDS ORDERED: DEXAMETHASONE SOD INJ 4 MG/ML VIAL ONE (07:02)
[2018-01-26] MEDS ORDERED: ONDANSETRON INJ 2 MG/ML 2 ML VIAL ONE ×2 (07:02→08:33)
[2018-01-26] MEDS ORDERED: PROPOFOL IV EMULSION 10 MG/ML 20 ML VIAL ONE (07:02)
--- NOTE | 2018-01-26 07:03 | History & Physical Bridge Note ---
H&P Re-Evaluation Bridge Note: I have examined the patient, reviewed the History & Physical and in the interval since the performance of the History & Physical I have noted the following changes of clinical significance: No changes noted
[2018-01-26] MEDS ORDERED: CONRAY 60% 50 ML VIAL ONE (07:39)
[2018-01-26] MEDS ORDERED: MoRPHine SULFATE 2 MG/ML CARP ONE ×2 (07:59→08:31)
[2018-01-26] MEDS ORDERED: SCOPOLAMINE 1.5 MG TDSY TD ONE (08:12)
[2018-01-26] MEDS ORDERED: EpHEDrine SULFATE INJ 50 MG/ML AMP IV PRN (08:15)
[2018-01-26] MEDS ORDERED: CLINDAMYCIN PHOS 150 MG/ML 2 ML VIAL ONE (08:15)
[2018-01-26] MEDS ORDERED: ATROPINE SULFATE 0.1 MG/ML 5ML SYR IV PRN (08:15)
[2018-01-26] MEDS ORDERED: ONDANSETRON INJ 2 MG/ML 2 ML VIAL IV PRN (08:15)
[2018-01-26] MEDS ORDERED: MoRPHine SULFATE 10 MG/ML CARP/VIAL IV PRN (08:15)
[2018-01-26] MEDS ORDERED: NEOSTIGMINE METHYLSULFATE 5 MG/5 ML SYR ONE (08:21)
[2018-01-26] MEDS ORDERED: GLYCOPYRROLATE INJ 0.2 MG/ML VIAL ONE (08:21)
[2018-01-26] MEDS ORDERED: KETOROLAC TROMETHAMINE 30 MG/ML VIAL ONE (08:26)
--- NOTE | 2018-01-26 08:29 | DIAGNOSTIC IMAGING REPORT ---
CHOLANGIOGRAM O.R. CLINICAL HISTORY: CHOLANGIOGRAM COMPARISON STUDY: None FLUOROSCOPY TIME: 15 seconds. NUMBER OF FLUOROSCOPIC IMAGES: 3 FINDINGS: 3 intraoperative fluoroscopic spot images are provided for interpretation. The common bile duct appears of normal caliber. There is free flow into the duodenum. There are no filling defects to indicate calculi. IMPRESSION: No common bile duct calculi identified. Free flow into the duodenum. Electronically signed by: Leonard Escalante M.D. 01/26/2018 8:28 AM Dictated Date/Time: 01/26/2018 8:27 AM
[2018-01-26] MEDS ORDERED: METOCLOPRAMIDE HCL INJ 5 MG/ML 2 ML VIAL ONE (08:34)
--- NOTE | 2018-01-26 08:37 | [facility] Post Operative Brief Note ---
Immediate Operative Summary Operative Date January 26, 2018. Pre-Operative Diagnosis Gallbladder sludge, Pancreatitis Post-Operative Diagnosis Gallbladder sludge, pancreatitis Procedure(s) Performed Laparoscopic Cholecystectomy with Intraoperative Cholangiogram Surgeon Dr. Joshua Santos Director Of It Operations Surgeon(s) None Estimated Blood Loss 15 mL Findings Consistent with Post-Op Diagnosis Specimens Permanent specimens A: Gallbladder and contents Drains None Anesthesia Type General Complication(s) none Disposition Accompanied Pt To Recover: no Disposition: Recovery Room / PACU
[2018-01-26] MEDS ORDERED: SCOPOLAMINE 1.5 MG TDSY TD SCH (08:45)
[2018-01-26] MEDS ORDERED: OXYCODONE/ACETAMINOPHEN 5-325 TAB PO PRN (08:45)
[2018-01-26] MEDS: FENTANYL CITRATE INJ 50 MCG/1 ML 2 ML VIAL IV PRN ×4 (08:57→09:16)
[2018-01-26] MEDS ORDERED: LABETALOL HCL IV 5 MG/ML 20ML ONE (09:08)
[2018-01-26] MEDS: LABETALOL HCL IV 5 MG/ML 20ML IV PRN ×2 (09:18→09:23)
--- NOTE | 2018-01-26 09:51 | Anesthesiology Progress Note ---
Anesthesia Post Op Note Date & Time January 26, 2018 at 09:51 Vital Signs Pain Intensity: 4 Vital Signs Past 12 Hours Date Time Temp Pulse Resp B/P (MAP) Pulse Ox O2 Delivery O2 Flow Rate FiO2 01/26/18 09:30 36.3 57 20 142/94 96 Room Air 01/26/18 09:20 59 20 155/95 100 Nasal Cannula 3 01/26/18 09:10 73 20 156/101 100 Nasal Cannula 3 01/26/18 09:00 61 20 175/110 100 Nasal Cannula 3 01/26/18 08:50 60 20 169/106 99 Nasal Cannula 3 01/26/18 08:40 36.2 64 20 164/96 99 Nasal Cannula 10 01/26/18 07:29 Room Air 01/26/18 06:42 36.8 63 18 150/99 (116) 98 01/26/18 00:00 Room Air 01/25/18 23:20 36.6 60 18 162/118 (133) 96 Room Air 162/113 (129) Notes Mental Status: alert / awake / arousable, participated in evaluation Pt Amnestic to Procedure: Yes Nausea / Vomiting: adequately controlled Pain: adequately controlled Airway Patency, RR, SpO2: stable & adequate BP & HR: stable & adequate Hydration State: stable & adequate Anesthetic Complications: no major complications apparent
--- NOTE | 2018-01-26 10:14 | OPERATIVE REPORT ---
DATE OF OPERATION: 01/26/2018 PREOPERATIVE DIAGNOSES: 1. Pancreatitis. 2. Gallbladder sludge. POSTOPERATIVE DIAGNOSES: Same. PROCEDURE PERFORMED: Laparoscopic cholecystectomy with intraoperative cholangiogram. SURGEON: Dr. Joshua Santos. [employer]: None. ESTIMATED BLOOD LOSS: 15 mL. INTRAOPERATIVE FINDINGS: A cholangiogram was performed showed filling of both radicles and the common duct with no filling defects. Contrast went into duodenum. It is a normal-appearing cholangiogram. SPECIMENS: Gallbladder and contents. COMPLICATIONS: None. DRAINS: None. INDICATION FOR PROCEDURE: This is a 37-year-old female who was admitted with pancreatitis and a workup was found to have sludge in the gallbladder, likely she transferred some sludge or small stones through the common duct causing the pancreatitis. The pancreatitis resolved. We will plan on taking her to the OR for laparoscopic cholecystectomy and intraoperative cholangiogram. She understands the risk of an open procedure, common bile duct injury, retained common bile duct stone, bile leak, bleeding, wound problems and possible retained stone. DESCRIPTION OF PROCEDURE: The patient was taken to the OR and underwent excellent general endotracheal anesthesia. Abdomen was prepped and draped in sterile fashion. Transverse supraumbilical incision was made. Dissection was taken down to identify anterior fascia. Two Vicryls were placed in either side of midline. The midline was incised sharply. Alem trocar was then inserted. Good pneumoperitoneum achieved to 15 mmHg pressure. The patient was placed in head up and rolled to the left. Good diagnostic lap performed. She had a little bit of a fatty liver and a gallbladder with some acute inflammatory changes. An 11 subxiphoid, two 5 lateral ports were placed in normal fashion. The fundus was grasped and retracted superiorly. The neck was grasped and retracted laterally. The peritoneal attachments were taken down from the cystic duct and cystic artery. A medial and lateral window was created in the gallbladder and gallbladder fossa showing these structures going to the gallbladder. Once this critical view was seen along with showing a bit of the cystic plate, 2 clips were placed proximally on the cystic artery and a posterior branch and one distally and these were transected. This left the cystic duct intact. A clip was placed proximally and a cholangiogram catheter was inserted through an Angiocath in the anterior abdominal wall. This was placed in the cystic duct, secured and a cholangiogram was performed which showed the above findings. The cholangiogram catheter was removed, 3 clips were placed distally on the cystic duct and cystic duct was transected. Electrocautery hook was then used to remove the gallbladder from gallbladder fossa. Small bit of bile was spilled from the gallbladder. Gallbladder was therefore sent with an Endobag and sent for pathologic evaluation. The abdomen was then irrigated out and suctioned to clear. Clips were well placed in the duct and artery with no sign of leak. No bleeding was seen in the gallbladder fossa. The ports were then removed. Pneumoperitoneum was decompressed. A 0 Vicryl was used to close the fascial defects. 0.5% Marcaine with epinephrine local was used to create a local field block. Interrupted Vicryl was used to close the subQ and the skin. Steri-Strips and benzoin were used to reinforce the incision. Sterile dressings were applied. The patient tolerated the procedure well without complications and was sent to post-recovery for a period of observation and be discharged home once she meets criteria. I attest to the content of the Intraoperative Record and any orders documented therein. Any exception s are noted below.
[2018-01-26] MEDS ORDERED: NURSING VERBAL MED ORDER ONE ×2 (10:15→22:15)
[2018-01-26] MEDS: AMLODIPINE BESYLATE 5 MG TAB PO SCH (10:25)
[2018-01-26] MEDS: LACTATED RINGER'S 1000ML 1,000 ML IV SCH ×2 (10:26→21:47)
[2018-01-26] MEDS: OXYCODONE HCL IR 5 MG TAB (IMMEDIATE RELEASE) PO PRN ×2 (15:57→20:29)
[2018-01-26] MEDS: CHECK SCOPOLAMINE PATCH PLACEMENT SCH ×2 (15:58→23:20)
--- NOTE | 2018-01-26 20:20 | Progress Note ---
Internal Med Progress Note Date of Service: January 26, 2018. Provider Documentation: Subjective Patient is s/p Laparoscopic Cholecystectomy with Intraoperative Cholangiogram. Patient denies acute pain after the surgery. Reports that she is passing gas. Denies nausea. Denies shortness of breath Physical Exam General: no acute distress Lungs: CTABL, no wheezing Heart rate: regular rate Abdomen: soft, abdomen with dressing, bowel sound present Extremities: no edema ASSESSMENT & PLAN: This is a patient with a second episode of acute pancreatitis versus unresolved initial episode of acute pancreatitis. Preop and Postop diagnosis of Pancreatitis / Gallbladder sludge s/p Laparoscopic Cholecystectomy with Intraoperative Cholangiogram on 01/26/18 Gallbladder was sent for pathologic evaluation from the OR as per OR report Hypertension -continue pain medications, continue Losartan and amlodipine Tobacco use -Nicotine patch DVT prophylaxis: SCD Full code. Vital Signs: Date Time Temp Pulse Resp B/P (MAP) Pulse Ox O2 Delivery O2 Flow Rate FiO2 01/26/18 15:45 Room Air 01/26/18 15:09 36.5 66 18 135/74 (94) 93 Room Air 01/26/18 12:50 71 18 148/79 (102) 95 Room Air 01/26/18 11:50 69 18 120/73 (89) 95 01/26/18 10:55 64 18 127/78 (94) 93 Room Air 01/26/18 10:20 67 18 153/84 (107) 94 Room Air 01/26/18 09:50 Room Air 01/26/18 09:50 Room Air 01/26/18 09:50 36.5 70 18 153/98 (116) 96 Room Air 01/26/18 09:30 36.3 57 20 142/94 96 Room Air 01/26/18 09:20 59 20 155/95 100 Nasal Cannula 3 01/26/18 09:10 73 20 156/101 100 Nasal Cannula 3 01/26/18 09:00 61 20 175/110 100 Nasal Cannula 3 01/26/18 08:50 60 20 169/106 99 Nasal Cannula 3 01/26/18 08:40 36.2 64 20 164/96 99 Nasal Cannula 10 01/26/18 07:29 Room Air 01/26/18 06:42 36.8 63 18 150/99 (116) 98 01/26/18 00:00 Room Air 01/25/18 23:20 36.6 60 18 162/118 (133) 96 Room Air 162/113 (129)
[2018-01-26] MEDS: LOSARTAN POTASSIUM 50 MG TAB PO SCH (20:29)
[2018-01-26] MEDS: KETOROLAC TROMETHAMINE 15 MG/ML VIAL IV. PRN (23:24)
[2018-01-27] MEDS: MoRPHine SULFATE 4 MG/ML 1 ML CARP\\VIAL IV PRN ×2 (00:46→07:30)
[2018-01-27 03:35] VITALS: BP 163/79; PULSE 60; TEMP 36.7; O2SAT 96
[2018-01-27] MEDS: OXYCODONE HCL IR 5 MG TAB (IMMEDIATE RELEASE) PO PRN ×2 (05:03→09:09)
[2018-01-27 06:26] LABS: BASO % 0.1 %; BASO ABS # 0.01 K/uL (0-0.2); EOS % 0.1 %; EOS ABS # 0.01 K/uL (0-0.5); HEMATOCRIT 38.7 % (37-47); HEMOGLOBIN 12.8 g/dL (12.0-16.0); IG# 0.04 K/uL (0.00-0.02); LYMPH % 11.8 %; LYMPH ABS # 1.61 K/uL (1.2-3.4); MEAN CELL VOLUME 73.9 fL (80-100); MEAN CORPUSCULAR HEMOGLOBIN 24.4 pg (25-34); MEAN CORPUSCULAR HGB CONC 33.1 g/dl (32-36); MEAN PLATELET VOLUME 9.8 fL (7.4-10.4); MONO % 5.8 %; MONO ABS # 0.79 K/uL (0.11-0.59); NEUT % 81.9 %; PLATELET COUNT 295 K/uL (130-400); RED CELL DISTRIBUTION WIDTH SD 43.3 fL (36.4-46.3); WHITE BLOOD COUNT 13.66 K/uL (4.8-10.8)
[2018-01-27 07:05] LABS: ALBUMIN 2.8 gm/dl (3.4-5.0); CREATININE 0.91 mg/dl (0.60-1.20); POTASSIUM 3.7 mmol/L (3.5-5.1); TOTAL PROTEIN 6.3 gm/dl (6.4-8.2)
[2018-01-27 07:11] VITALS: BP 159/96; PULSE 49; TEMP 36.9; O2SAT 97
[2018-01-27] MEDS: CHECK SCOPOLAMINE PATCH PLACEMENT SCH (07:31)
[2018-01-27 07:35] VITALS: O2SAT 97
[2018-01-27 08:55] VITALS: BP 156/113; PULSE 66
[2018-01-27] MEDS: LOSARTAN POTASSIUM 50 MG TAB PO SCH (08:57)
[2018-01-27] MEDS: AMLODIPINE BESYLATE 5 MG TAB PO SCH (08:58)
--- NOTE | 2018-01-27 10:43 | Surgery Progress Note ---
Surgery Progress Note Date of Service January 27, 2018. Subjective Post OP Day: 1 + feeling well F/U S/P laparoscopic cholecystectomy with cholangiogram, pt is doing better, less abdominal pain, she tolerated clear diet, no nausea, no vomiting. Objective Vital Signs: Date Time Temp Pulse Resp B/P (MAP) Pulse Ox O2 Delivery O2 Flow Rate FiO2 01/27/18 08:55 66 156/113 (127) 01/27/18 07:35 97 Room Air 01/27/18 07:11 36.9 49 18 159/96 (117) 97 Room Air 01/27/18 03:35 36.7 60 16 163/79 (107) 96 Room Air 01/26/18 23:25 Room Air 01/26/18 23:15 36.6 56 18 165/105 (125) 96 Room Air 164/97 (119) 01/26/18 19:00 36.7 66 17 147/82 (103) 96 Room Air 01/26/18 15:45 Room Air 01/26/18 15:09 36.5 66 18 135/74 (94) 93 Room Air 01/26/18 12:50 71 18 148/79 (102) 95 Room Air 01/26/18 11:50 69 18 120/73 (89) 95 01/26/18 10:55 64 18 127/78 (94) 93 Room Air General Appearance: WD/WN, no apparent distress Head: normocephalic Neck: supple, no JVD Respiratory/Chest: chest non-tender, lungs clear Cardiovascular: regular rate, rhythm, no edema, no gallop, no JVD Abdomen: normal bowel sounds, non distended, soft, no organomegaly, + tenderness (incision pain, ) Incision(s): clean, dry, intact, no erythema Laboratory Results: Results Past 24 Hours Test 01/27/18 05:54 Range/Units White Blood Count 13.66 4.8-10.8 K/uL Red Blood Count 5.24 4.2-5.4 M/uL Hemoglobin 12.8 12.0-16.0 g/dL Hematocrit 38.7 37-47 % Mean Corpuscular Volume 73.9 80-100 fL Mean Corpuscular Hemoglobin 24.4 25-34 pg Mean Corpuscular Hemoglobin Concent 33.1 32-36 g/dl Platelet Count 295 130-400 K/uL Mean Platelet Volume 9.8 7.4-10.4 fL Neutrophils (%) (Auto) 81.9 % Lymphocytes (%) (Auto) 11.8 % Monocytes (%) (Auto) 5.8 % Eosinophils (%) (Auto) 0.1 % Basophils (%) (Auto) 0.1 % Neutrophils # (Auto) 11.20 1.4-6.5 K/uL Lymphocytes # (Auto) 1.61 1.2-3.4 K/uL Monocytes # (Auto) 0.79 0.11-0.59 K/uL Eosinophils # (Auto) 0.01 0-0.5 K/uL Basophils # (Auto) 0.01 0-0.2 K/uL RDW Standard Deviation 43.3 36.4-46.3 fL RDW Coefficient of Variation 16.0 11.5-14.5 % Immature Granulocyte % (Auto) 0.3 % Immature Granulocyte # (Auto) 0.04 0.00-0.02 K/uL Sodium Level 139 136-145 mmol/L Potassium Level 3.7 3.5-5.1 mmol/L Chloride Level 107 98-107 mmol/L Carbon Dioxide Level 24 21-32 mmol/L Anion Gap 8.0 3-11 mmol/L Blood Urea Nitrogen 7 7-18 mg/dl Creatinine 0.91 0.60-1.20 mg/dl Est Creatinine Clear Calc Drug Dose 96.2 ml/min Estimated GFR () 93.4 Estimated GFR (Non- 80.6 BUN/Creatinine Ratio 7.8 10-20 Random Glucose 115 70-99 mg/dl Calcium Level 9.0 8.5-10.1 mg/dl Magnesium Level 2.0 1.8-2.4 mg/dl Total Bilirubin 0.5 0.2-1 mg/dl Aspartate Amino Transf (AST/SGOT) 40 15-37 U/L Alanine Aminotransferase (ALT/SGPT) 85 12-78 U/L Alkaline Phosphatase 98 45-117 U/L Total Protein 6.3 6.4-8.2 gm/dl Albumin 2.8 3.4-5.0 gm/dl Globulin 3.5 2.5-4.0 gm/dl Albumin/Globulin Ratio 0.8 0.9-2 Lipase 193 73-393 U/L Assessment & Plan S/P lap kwame pt is doing fine, pt wants to go home, the instruction: regular diet, keep all dressing on for 4 days, no heavy lifting > 20 LBS for 4 weeks, no driving while taking pain medicine, follow up DR. lobo in 1 week, regular diet
[2018-01-27] MEDS: LACTATED RINGER'S 1000ML 1,000 ML IV SCH (10:58)
[2018-01-27 11:00] VITALS: BP 156/113; PULSE 66; TEMP 36.9; O2SAT 97
[2018-01-27] MEDS ORDERED: NURSING VERBAL MED ORDER ONE (11:00)
--- NOTE | 2018-01-27 11:05 | Progress Note ---
Internal Med Progress Note Date of Service: January 27, 2018. Provider Documentation: Subjective Patient is s/p Laparoscopic Cholecystectomy with Intraoperative Cholangiogram. Patient denies acute pain after the surgery. Reports that she is passing gas. Denies nausea. Denies shortness of breath Physical Exam General: no acute distress Lungs: CTABL, no wheezing Heart rate: regular rate Abdomen: soft, abdomen with dressing, bowel sound present Extremities: no edema ASSESSMENT & PLAN: Hospital Plan and Discharge Instructions This is a patient with a second episode of acute pancreatitis versus unresolved initial episode of acute pancreatitis. Preop and Postop diagnosis of Pancreatitis / Gallbladder sludge s/p Laparoscopic Cholecystectomy with Intraoperative Cholangiogram on 01/26/[address] Santos Gallbladder was sent for pathologic evaluation from the OR as per OR report Patient was followed up by surgeon Dr. Merida and recommends patient can be discharged and advises tramadol to be prescribed for 4 days if pain; A prescription for Tramadol 50 mg every 6 hours only as need if pain has been made Surgery Discharge instruction of regular diet, keep all dressing on for 4 days, no heavy lifting > 20 LBS for 4 weeks, no driving while taking pain medicine, follow up DR. Santos in 1 week 02/04/2018 1:30 PM Joshua Santos MD General Surgery, [facility] ([phone]) Other Discharge instructions Hypertension was controlled in the hospital, continue home blood pressure medications Tobacco use Advised smoking cessation, Nicotine patch prescription offered primary care doctor follow up 02/11/2018 9:20 AM Lily Eastman MD General Internal Medicine [facility] Vital Signs: Date Time Temp Pulse Resp B/P (MAP) Pulse Ox O2 Delivery O2 Flow Rate FiO2 01/27/18 08:55 66 156/113 (127) 01/27/18 07:35 97 Room Air 01/27/18 07:11 36.9 49 18 159/96 (117) 97 Room Air 01/27/18 03:35 36.7 60 16 163/79 (107) 96 Room Air 01/26/18 23:25 Room Air 01/26/18 23:15 36.6 56 18 165/105 (125) 96 Room Air 164/97 (119) 01/26/18 19:00 36.7 66 17 147/82 (103) 96 Room Air 01/26/18 15:45 Room Air 01/26/18 15:09 36.5 66 18 135/74 (94) 93 Room Air 01/26/18 12:50 71 18 148/79 (102) 95 Room Air 01/26/18 11:50 69 18 120/73 (89) 95 Lab Results: Results Past 24 Hours Test 01/27/18 05:54 Range/Units White Blood Count 13.66 4.8-10.8 K/uL Red Blood Count 5.24 4.2-5.4 M/uL Hemoglobin 12.8 12.0-16.0 g/dL Hematocrit 38.7 37-47 % Mean Corpuscular Volume 73.9 80-100 fL Mean Corpuscular Hemoglobin 24.4 25-34 pg Mean Corpuscular Hemoglobin Concent 33.1 32-36 g/dl Platelet Count 295 130-400 K/uL Mean Platelet Volume 9.8 7.4-10.4 fL Neutrophils (%) (Auto) 81.9 % Lymphocytes (%) (Auto) 11.8 % Monocytes (%) (Auto) 5.8 % Eosinophils (%) (Auto) 0.1 % Basophils (%) (Auto) 0.1 % Neutrophils # (Auto) 11.20 1.4-6.5 K/uL Lymphocytes # (Auto) 1.61 1.2-3.4 K/uL Monocytes # (Auto) 0.79 0.11-0.59 K/uL Eosinophils # (Auto) 0.01 0-0.5 K/uL Basophils # (Auto) 0.01 0-0.2 K/uL RDW Standard Deviation 43.3 36.4-46.3 fL RDW Coefficient of Variation 16.0 11.5-14.5 % Immature Granulocyte % (Auto) 0.3 % Immature Granulocyte # (Auto) 0.04 0.00-0.02 K/uL Sodium Level 139 136-145 mmol/L Potassium Level 3.7 3.5-5.1 mmol/L Chloride Level 107 98-107 mmol/L Carbon Dioxide Level 24 21-32 mmol/L Anion Gap 8.0 3-11 mmol/L Blood Urea Nitrogen 7 7-18 mg/dl Creatinine 0.91 0.60-1.20 mg/dl Est Creatinine Clear Calc Drug Dose 96.2 ml/min Estimated GFR () 93.4 Estimated GFR (Non- 80.6 BUN/Creatinine Ratio 7.8 10-20 Random Glucose 115 70-99 mg/dl Calcium Level 9.0 8.5-10.1 mg/dl Magnesium Level 2.0 1.8-2.4 mg/dl Total Bilirubin 0.5 0.2-1 mg/dl Aspartate Amino Transf (AST/SGOT) 40 15-37 U/L Alanine Aminotransferase (ALT/SGPT) 85 12-78 U/L Alkaline Phosphatase 98 45-117 U/L Total Protein 6.3 6.4-8.2 gm/dl Albumin 2.8 3.4-5.0 gm/dl Globulin 3.5 2.5-4.0 gm/dl Albumin/Globulin Ratio 0.8 0.9-2 Lipase 193 73-393 U/L
[2018-01-27] MEDS ORDERED: ULT50X PO (11:06)
[2018-01-27] MEDS ORDERED: NICO7DIS7 TD (11:07)
--- NOTE | 2018-01-27 11:17 | Discharge Instructions ---
Discharge Instructions Date of Service January 27, 2018. Admission Reason for Admission: Pancreatitis Discharge Discharge Diagnosis / Problem: Pancreatitis / Gallbladder sludge, Laparoscopic Cholecystectomy Discharge Goals Goal(s): Decrease discomfort Activity Recommendations Activity Limitations: per Instructions/Follow-up section Surgery Discharge instruction of regular diet, keep all dressing on for 4 days, no heavy lifting > 20 LBS for 4 weeks, no driving while taking pain medicine . Instructions / Follow-Up Instructions / Follow-Up Hospital Plan and Discharge Instructions This is a patient with a second episode of acute pancreatitis versus unresolved initial episode of acute pancreatitis. Preop and Postop diagnosis of Pancreatitis / Gallbladder sludge s/p Laparoscopic Cholecystectomy with Intraoperative Cholangiogram on 01/26/[address] Santos Gallbladder was sent for pathologic evaluation from the OR as per OR report Patient was followed up by surgeon Dr. Merida and recommends patient can be discharged and advises tramadol to be prescribed for 4 days if pain; A prescription for Tramadol 50 mg every 6 hours only as need if pain has been made Surgery Discharge instruction of regular diet, keep all dressing on for 4 days, no heavy lifting > 20 LBS for 4 weeks, no driving while taking pain medicine, follow up Dr. Santos in 1 week 02/04/2018 1:30 PM Joshua Santos MD General Surgery, [facility] ([phone]) Other Discharge instructions Hypertension was controlled in the hospital, continue home blood pressure medications Tobacco use Advised smoking cessation, Nicotine patch prescription offered primary care doctor follow up 02/11/2018 9:20 AM Lily Eastman MD General Internal Medicine [facility] Current Hospital Diet Patient's current hospital diet: Regular Diet Discharge Diet Recommended Diet: Regular Diet Procedures Procedures Performed: Laparoscopic Cholecystectomy with Intraoperative Cholangiogram Pending Studies Studies pending at discharge: yes List of pending studies: gallblader sent to pathology Laboratory Results Lipid Panel Test 01/09/18 06:41 Range/Units Triglycerides Level 104 0-150 mg/dl Cholesterol Level 161 0-200 mg/dl HDL Cholesterol 35 mg/dl Cholesterol/HDL Ratio 4.6 LDL Cholesterol, Calculated 105 mg/dl Medical Emergencies . Who to Call and When: Medical Emergencies: If at any time you feel your situation is an emergency, please call 911 immediately. . Non-Emergent Contact Non-Emergency issues call your: Primary Care Provider, Surgeon Call Non-Emergent contact if: you have any medication questions . . "Provider Documentation" section prepared by Vincent Rosario. .
--- NOTE | 2018-01-27 11:18 | Discharge Summary ---
Discharge Summary Date of Service January 27, 2018. Discharge Summary Admission Date: January 24, 2018 at 01:32 Discharge Date: January 27, 2018 Discharge Disposition: Home Principal Diagnosis: Pancreatitis / Gallbladder sludge, Laparoscopic Cholecystectomy Pending Studies/Follow-Up: gallbladder sent to pathology Medication Reconciliation New Medications: Nicotine (Nicoderm Cq 7 Mg Patch) 7 Mg/24 Hr Dis 7 MG TD DAILY for 30 Days, #30 PATCH Tramadol HCl (Tramadol HCl) 50 Mg Tab 50 MG PO Q6H PRN for Pain for 4 Days, #16 TAB Continued Medications: Amlodipine (Norvasc) 5 Mg Tab 5 MG PO DAILY, TAB Hctz/Losartan (Hyzaar 12.5MG/50MG) Unknown Strength Tab 2 TABS PO QAM, TAB UNKNOWN STRENGTH Admission Information HPI (per Admitting provider): PRIMARY CARE DOCTOR: Dr. Eastman. CHIEF COMPLAINT: Abdominal pain. HISTORY OF PRESENT ILLNESS: History obtained from patient and records. Medical history significant for hypertension, mood/anxiety disorder, ongoing tobacco abuse, pancreatitis. Recent confinement about 2 weeks ago for acute pancreatitis, hypertensive urgency and UTI. Patient seen by GI. Outpatient endoscopic ultrasound contemplated in 4-6 weeks. Yesterday, patient was feeling uncomfortable. Later on last night, patient had upper achy abdominal pain, more on the left side, similar to pancreatitis episode. Denies fatty food, ETOH intake. Some nausea, emesis. No chest pain, no shortness of breath. MEDICAL HISTORY: As above. SURGERIES: Orthopedic procedures. HOME MEDICATIONS: Include Norvasc, HCTZ, losartan. ALLERGIES: ALLERGIC TO ADHESIVES, TYLENOL, CODEINE, CEPHALOSPORIN, PREGABALIN. FAMILY HISTORY: Diabetes, hypertension. PERSONAL SOCIAL HISTORY: One-fourth pack daily. 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 REVIEW OF SYSTEMS: As per HPI. All 10 systems reviewed. All other ROS negative. Physical Exam (per Admitting): PHYSICAL EXAMINATION: VITAL SIGNS: Blood pressure was noted to be 202/127, later 163/68, pulse rate 61, RR 16, patient's sats 99 on room air, noted to be anxious. GENERAL: Obese. Looks older than stated age. Slightly uncomfortable SKIN: Normal color, warm. HEENT: [place] palpebral conjunctivae. No ptosis or mucosa. NECK: Short, supple. CHEST: Decreased effort, no tenderness. HEART: Regular rate and rhythm, no murmur. ABDOMEN: Upper abdominal tenderness, some distention. EXTREMITIES: No edema noted. No tenderness. No gross deformities. NEUROLOGIC: Coherent. No gross focality. Hospital Course Hospital Plan and Discharge Instructions This is a patient with a second episode of acute pancreatitis versus unresolved initial episode of acute pancreatitis. Preop and Postop diagnosis of Pancreatitis / Gallbladder sludge s/p Laparoscopic Cholecystectomy with Intraoperative Cholangiogram on 01/26/[address] Santos Gallbladder was sent for pathologic evaluation from the OR as per OR report Patient was followed up by surgeon Dr. Merida and recommends patient can be discharged and advises tramadol to be prescribed for 4 days if pain; A prescription for Tramadol 50 mg every 6 hours only as need if pain has been made Surgery Discharge instruction of regular diet, keep all dressing on for 4 days, no heavy lifting > 20 LBS for 4 weeks, no driving while taking pain medicine, follow up DR. Santos in 1 week 02/04/2018 1:30 PM Joshua Santos MD General Surgery, [facility] ([phone]) Other Discharge instructions Hypertension was controlled in the hospital, continue home blood pressure medications Tobacco use Advised smoking cessation, Nicotine patch prescription offered primary care doctor follow up 02/11/2018 9:20 AM Lily Eastman MD General Internal Medicine [facility] Total time spent on discharge = 40 minutes This includes examination of the patient, discharge planning, medication reconciliation, and communication with other providers. Discharge Instructions SEE ABOVE
== END 2018-01-27 11:49 | disposition home or self-care (01) | DRG 419 ==
LOC: C.EDB 21:02 → C.MS2W 01-24 01:32 → ENRESERV 01-24 01:38 → C.MSW 01-26 09:52
PROVIDERS: ADMIT Hospitalist; ATTEND Hospitalist
PROC: 0FT44ZZ Resection of Gallbladder, Percutaneous Endoscopic Approach (ICD-10-PCS; principal; 2018-01-24)
DX: K85.90 Acute pancreatitis without necrosis or infection, unspecified (principal); K82.9 Disease of gallbladder, unspecified; F17.200 Nicotine dependence, unspecified, uncomplicated; I10 Essential (primary) hypertension; F39 Unspecified mood [affective] disorder; F41.9 Anxiety disorder, unspecified